=== PATIENT | female | born 1950 | race Caucasian/White ===

== ENCOUNTER → 2018-06-11 12:11 | Outpatient (CLI) | payer MEDICARE, SELFPAY | PROVIDERS: Visit Provider Physician Assistant | DX: R55 Syncope and collapse (principal) | CPT/HCPCS: 93005 ==

== ENCOUNTER 2022-01-24 17:05 | Inpatient (IN) | payer MEDICARE, SELFPAY ==
--- NOTE | 2022-01-24 17:05 | ECG_ITS ---
APPROVED REPORT Exam: Resting ECG HR:78 bpm ECG Measurements Heart Rate 78 AXES ND 156 P 84 QRSd 83 QRS 75 QT 384 T 77 QTc 417 Conclusion SINUS RHYTHM WITH SINUS ARRHYTHMIA MINIMAL ST DEPRESSION [0.025+ mV ST DEPRESSION] BORDERLINE ECG UNCONFIRMED REPORT Electronically signed by : Montrell Gil MD 01/26/2022 08:44:27
[2022-01-24 17:11] VITALS: BP 132/52; PULSE 76; RESP 14; TEMP 36.6; O2SAT 100; BMI 20.9
--- NOTE | 2022-01-24 17:14 | PC.NURSE ---
Mariah Abdul, RN at
--- NOTE | 2022-01-24 17:18 | HMH.EDGENADL ---
ED Disposition Clinical Impression: Enteritis, Ileus, Partial small bowel obstruction Disposition: Admitted as Observation Condition on Discharge: Fair Referrals: Aleksandr Aaron [Primary Care Provider] - - Critical Care Critical Care Time: No Attestation: On , the high probability of a clinically significant, sudden or life threatening deterioration of the following system(s) required my full and direct attention, intervention and personal management. The time I documented below is in addition to time spent performing reported procedures but includes the following listed in this critical care notation. Medical Decision Making - Prem Inquiry Pt receiving controlled substance: Yes Prem was queried for this patient: Yes Risks and benefits of using a controlled substance: were not discussed with pt by me Vital Signs: 01/24/22 17:11 01/24/22 17:30 Temperature 97.9 F Temperature Source Oral Pulse Rate 69 Pulse Rate [Left Radial] 76 Respiratory Rate 14 20 Blood Pressure 127/63 Blood Pressure [Right Arm] 132/52 L Blood Pressure Mean [Right Arm] 78 Blood Pressure Source [Right Arm] Automatic Cuff Blood Pressure Position [Right Arm] Sitting 02 Sat by Pulse Oximetry 100 100 Oxygen Delivery Method Room Air - Lab Data Lab Results 01/24/22 17:14: WBC 11.8 H, RBC 5.07, Hgb 15.1, Hct 44.8, MCV 88.5, MCH 29.9, MCHC 33.8, RDW 13.4, Plt Count 343, MPV 7.8, Neut % (Auto) 86.1 H, Lymph % (Auto) 9.6 L, [place] % (Auto) 3.4, Eos % (Auto) 0.2, Baso % (Auto) 0.7, Neut # (Auto) 10.2 H, Lymph # (Auto) 1.1, [place] # (Auto) 0.4, Eos # (Auto) 0.0, Baso # (Auto) 0.1, Total Counted 100, Neutrophils % (Manual) 87 H, Lymphocytes % (Manual) 9 L, Monocytes % (Manual) 3, Eosinophils % (Manual) 1, Platelet Estimate Normal, RBC Morphology Normal 01/24/22 17:14: Sodium 138, Potassium 3.9, Chloride 100, Carbon Dioxide 28, Anion Gap 13.9, BUN 20 H, Creatinine 0.80, Estimated Creat Clear 47, Estimated GFR 71, Est GFR ( Amer) 86, Glucose 165 H, Calcium 10.1, Total Bilirubin 1.4 H, AST 31, ALT 24, Alkaline Phosphatase 84, Troponin I < 0.01, Total Protein 7.2, Albumin 4.5, Globulin 2.7, Albumin/Globulin Ratio 1.7, Amylase 61 01/24/22 17:14: Lipase 35 01/24/22 17:34: SARS-CoV-2 (PCR) Not detected, Influenza A Untype (PCR) Not detected, Influenza Type B (PCR) Not detected 01/24/22 17:58: Urine Color Dk yellow, Urine Appearance Clear, Urine pH 8.5, Ur Specific [place] 1.010, Urine Protein 1+, Urine Glucose (UA) Negative, Urine Ketones 1+, Urine Blood Negative, Urine Nitrate Negative, Urine Bilirubin 1+ A, Urine Urobilinogen 1.0, Ur Leukocyte Esterase Trace, Urine RBC None, Urine WBC 5-10, Ur Squamous Epith Cells Occasional, Urine Bacteria Trace Result diagrams: 01/24/22 17:14 01/24/22 17:14 Orders (Tests/Meds): ED MEDICATIONS Generic Name Dose Route Start Last Admin Trade Name Freana maria PRN Reason Stop Dose Admin Sodium Chloride 1,000 mls @ 999 mls/hr 01/24/22 17:30 01/24/22 17:25 Sod Chlor 0.9% 1000ml Bag IV 01/24/22 18:30 999 mls/hr .Q1H1M HOLLY Administration Sodium Chloride 10 ml 01/24/22 17:23 Sodium Chloride 0.9% 10ml Flush Syringe IV 02/23/22 17:22 NEEDED PRN Maintain IV Site Discontinued Medications Generic Name Dose Route Start Last Admin Trade Name Freana maria PRN Reason Stop Dose Admin Iopamidol 75 ml 01/24/22 18:16 01/24/22 18:17 Iopamidol-370 (76%);100ml Bottle IV 01/24/22 18:17 75 ml ONCE ONE Administration Morphine Sulfate 4 mg 01/24/22 17:32 01/24/22 17:33 Morphine 4mg/Ml Syringe IV 01/24/22 17:33 4 mg ONCE ONE Administration Ondansetron HCl 4 mg 01/24/22 17:23 01/24/22 17:24 Ondansetron 4mg/2ml Vial IV 01/24/22 17:24 4 mg ONCE ONE Administration Sodium Chloride 10 ml 01/24/22 18:16 01/24/22 18:17 Sodium Chloride 0.9% 10ml Syr (Rad Only) IV 01/24/22 18:17 10 ml ONCE ONE Administration ORDERS Category Date Time Status Troponin I Q3H Lab 01/08
--- NOTE | 2022-01-24 17:21 | PC.NURSE ---
ED MD at
--- NOTE | 2022-01-24 17:22 | XR_ITS ---
PROCEDURE INFORMATION: Exam: XR Chest Exam date and time: 01/24/2022 6:12 PM Age: 71 years old Clinical indication: Pain; Chest pressure; Additional info: Chest pain TECHNIQUE: Imaging protocol: XR of the chest. Views: 1 view. COMPARISON: CT ABDOMEN PELVIS W CON 01/24/2022 6:01 PM FINDINGS: Lungs: Stigmata of old granulomatous disease. Emphysema. Pleural spaces: Unremarkable. No pleural effusion. No pneumothorax. Heart/Mediastinum: Unremarkable. No cardiomegaly. Bones/joints: Status post median sternotomy. IMPRESSION: No acute findings.
--- NOTE | 2022-01-24 17:23 | CT_ITS ---
PROCEDURE INFORMATION: Exam: CT Abdomen And Pelvis With Contrast Exam date and time: 01/24/2022 6:01 PM Age: 71 years old Clinical indication: Vomiting; Abdominal pain; Acute; Additional info: Abdomen pain TECHNIQUE: Imaging protocol: Computed tomography of the abdomen and pelvis with contrast. Radiation optimization: All CT scans at this facility use at least one of these dose optimization techniques: automated exposure control; mA and/or kV adjustment per patient size (includes targeted exams where dose is matched to clinical indication); or iterative reconstruction. Contrast material: ISOVUE; Contrast volume: 75 ml; Contrast route: IV; COMPARISON: No relevant prior studies available. FINDINGS: Lungs: [id number] centrilobular emphysema. Liver: Normal. No mass. Gallbladder and bile ducts: Post cholecystectomy ectasia. Gallbladder is absent. Pancreas: Normal. No ductal dilation. Spleen: Normal. No splenomegaly. Adrenal glands: Normal. No mass. Kidneys and ureters: Normal. No hydronephrosis. Stomach and bowel: Moderate sigmoid diverticulosis without diverticulitis. There are dilated segments of small bowel tapering to normal diameter in the pelvis. Nonspecific bowel wall thickening of portions of the stomach, small bowel, and colon. Appendix: The appendix is not clearly identified. There are no secondary findings of acute appendicitis. Intraperitoneal space: Unremarkable. No free air. No significant fluid collection. Vasculature: Moderate atherosclerotic disease of the arteries. Lymph nodes: Unremarkable. No enlarged lymph nodes. Urinary bladder: Limited evaluation of the urinary bladder due to low urine volume. Reproductive: Status post hysterectomy. Bones/joints: Status post median sternotomy. Soft tissues: There is a healed anterior abdominal wall incision. Other findings: Stigmata of old granulomatous disease. IMPRESSION: 1. Findings are favored to represent enterocolitis with ileus, however, partial small bowel obstruction is also possible. 2. Limited evaluation of the urinary bladder due to low urine volume. Please exclude infection clinically.
[2022-01-24 17:30] VITALS: BP 127/63; PULSE 69; RESP 20; O2SAT 100
[2022-01-24 17:31] LABS: Basophils # 0.1 K/mm3 (0-0.2); Basophils % 0.7 % (0.1-2.0); Eosinophils % 0.2 % (0.1-12.0); Hematocrit 44.8 % (37.0-47.0); Hemoglobin 15.1 g/dL (12.2-16.2); Lymphocytes # 1.1 K/mm3 (0.7-4.5); Lymphocytes % 9.6 % (10-50); Mean Corpuscular HGB Conc 33.8 g/dL (31.8-35.4); Mean Corpuscular Hemoglobin 29.9 pg (27.0-31.2); Mean Corpuscular Volume 88.5 fl (81-99); Mean Platelet Volume 7.8 fl (7.4-10.4); Monocytes # 0.4 K/mm3 (0.1-1.0); Monocytes % 3.4 % (1.7-9.3); Neutrophils # 10.2 K/mm3 (1.8-7.8); Neutrophils % 86.1 % (37.0-80.0); Platelet Count 343 K/mm3 (142-424); Red Blood Count 5.07 M/mm3 (4.20-5.40); Red Cell Distribution Width 13.4 % (11.5-17.5); White Blood Count 11.8 K/mm3 (4.8-10.8)
--- NOTE | 2022-01-24 17:35 | PC.NURSE ---
covid/flu swab obtained and sent to lab
[2022-01-24 17:36] LABS: MANUAL DIFFERENTIAL MANUAL DIFFERENTIAL (MANUAL DIFF)
[2022-01-24 17:40] LABS: Coronavirus 19, PCR Not Detected (NotDetected); Influenza A, PCR Not Detected (NotDetected); Influenza B, PCR Not Detected (NotDetected)
[2022-01-24 17:42] LABS: Chloride 100 mmol/L (98-107); Potassium 3.9 mmoL/L (3.5-5.1); Sodium 138 mmol/L (136-145)
[2022-01-24 17:43] LABS: Lipase 35 U/L (23-300)
[2022-01-24 17:44] LABS: Alanine Aminotransferase 24 U/L (12-78); Alkaline Phosphatase 84 U/L (38-126); Amylase 61 U/L (30-110); Anion Gap 13.9 mEq/L (5-15); Aspartate Amino Transferase 31 U/L (14-36); Bilirubin,Total 1.4 mg/dl (0.2-1.3); Blood Urea Nitrogen 20 mg/dl (7-17); Carbon Dioxide 28 mmol/L (22.0-30.0); Creatinine Clearance Estimated 47 mL/min (50-200); Estimated Glomerular Filt Rate 71 ml/min (>60); GFR (African American) 86 ML/MIN (>60)
[2022-01-24 17:45] LABS: Albumin Level 4.5 g/dl (3.5-5.0); Albumin/Globulin Ratio 1.7 (1.1-1.8); Calcium 10.1 mg/dl (8.4-10.2); Globulin 2.7 g/dL (1.3-3.2); Glucose 165 mg/dl (74-100); Total Protein,Serum 7.2 g/dl (6.3-8.2)
[2022-01-24 17:59] LABS: Troponin I < 0.01 ng/ml (0.00-0.034)
[2022-01-24 18:04] LABS: Microscopic, Urine URINE MICROSCOPIC (MICROSCOPIC)
[2022-01-24 18:05] LABS: Appearance,Urine CLEAR (Clear); Blood, Urine Negative (Negative); Color,Urine DK YELLOW (Yellow); Glucose,Urine (UA) Negative (Negative); Ketones,Urine 1+ (Negative); Leukocyte Esterase,Urine TRACE (Negative); Nitrate,Urine Negative (Negative); PH,Urine 8.5 (5.0-8.5); Protein,Urine 1+ (Negative)
[2022-01-24 18:26] LABS: Bilirubin,Urine 1+ (Negative)
[2022-01-24 18:32] LABS: Eosinophils % 1 % (0-3); Lymphocytes % 9 % (10-50); Monocytes % 3 % (2-9); Neutrophils % 87 % (42-76); Total Cells Counted 100
[2022-01-24 18:33] LABS: Platelet Estimate Normal; RBC Morphology Normal
[2022-01-24 18:36] LABS: Bacteria,Urine Trace /lpf; Squamous Epithelial Cell,Urine Occasional #/hpf (0-5)
--- NOTE | 2022-01-24 19:05 | PC.NURSE ---
Dr. Monson s/w Dr. Ortiz for admission.
--- NOTE | 2022-01-24 19:08 | PC.NURSE ---
House notified for bed assignment
[2022-01-24 19:25] VITALS: BMI 20.9
[2022-01-24 19:49] VITALS: BP 127/63; PULSE 69; RESP 18; TEMP 36.7; O2SAT 99
[2022-01-24 20:00] VITALS: BP 104/48; PULSE 65; RESP 20; TEMP 36.7; O2SAT 95; O2SAT 99
--- NOTE | 2022-01-24 20:07 | PC.NURSE ---
pt arrived to floor via wheelchair at this time.
[2022-01-24 21:30] LABS: Troponin I < 0.01 ng/ml (0.00-0.034)
[2022-01-24 23:38] LABS: Troponin I < 0.01 ng/ml (0.00-0.034)
[2022-01-25 03:49] VITALS: BP 92/49; PULSE 67; RESP 16; TEMP 36.6; O2SAT 97
[2022-01-25 05:10] VITALS: BMI 21.2
--- NOTE | 2022-01-25 05:12 | PC.NURSE ---
Pt a + o x4. Pt has c/o nausea/vomiting t/o night. Emesis is green in color and has foul odor. PRN Zofran given with little effect. MD sales communications manager notified. New orders for 5mg Reglan IV once and 12.5mg Phenergan IV once read back, verified, and carried out. Pt is now resting comfortably in bed. Call light within reach.
--- NOTE | 2022-01-25 07:37 | HMH.PHAVTE ---
[facility] Pharmacy VTE Monitoring - Patient Demographics Admission date: 01/24/22 Report Date: 01/25/22 Time: 07:37 Allergies/Adverse Reactions: Patient Allergies prednisone Allergy (Verified 10/16/18 12:46) Height: 1.65 m Weight: 57.691 kg Patient Problems: Current Active Problems Enteritis (Acute) Ileus (Acute) Partial small bowel obstruction (Acute) - VTE Risk Labs: VTE Related Lab Results Hgb 15.1 g/dL (12.2-16.2) 01/24/22 17:14 Hct 44.8 % (37.0-47.0) 01/24/22 17:14 Plt Count 343 K/mm3 (142-424) 01/24/22 17:14 BUN 20 mg/dl (7-17) H 01/24/22 17:14 Creatinine 0.80 mg/dl (0.52-1.04) 01/24/22 17:14 Estimated Creat Clear 47 mL/min (50-200) 01/24/22 17:14 Was VTE Risk Assessment Performed: Yes VTE Score: 4 VTE Risk Level: Low Risk Clinical Trial Participant: No - Prophylaxis VTE Prophylaxis Ordered?: Yes Types of VTE Prophylaxis: TEDS Knee High
--- NOTE | 2022-01-25 07:38 | HMH.PHAINT ---
home medication list verified using list from [facility] [place]
[2022-01-25 08:00] VITALS: BP 114/60; PULSE 91; RESP 20; TEMP 36.8; O2SAT 97
--- NOTE | 2022-01-25 08:21 | FL_ITS ---
FINAL REPORT CLINICAL HISTORY: . sbo vs ileus total 5hours at 10 mins COMPARISON: Prior CT dated January 24, 2022 FINDINGS: SMALL BOWEL SERIES A preliminary stratigraphy teacher image of the abdomen was obtained. A nasogastric tube is present. There is residual contrast in the bladder. There is an abnormal bowel gas pattern with air-filled distended small bowel loops. Contrast was then injected into the stomach and sequential images of the abdomen and pelvis were obtained. Significantly distended proximal and mid small bowel loops are seen. The 5 hour 10 minute radiograph demonstrates a decompressed terminal ileum and opacification of a portion of the ascending colon. Findings are consistent with a high-grade partial small bowel obstruction. IMPRESSION: High-grade partial small bowel obstruction. Reviewed, Interpreted and Dictated by Kemal Curiel III, MD Transcribed by Bryon Gold Authenticated by Kemal Curiel III, MD on 01/25/2022 04:24:19 PM [facility]
--- NOTE | 2022-01-25 08:25 | HMH.GSCON ---
*Admission Date: 01/24/22 *Reason for consult:: Small bowel obstruction versus ileus *History of present illness: This is a 71-year-old female seen in consultation from Dr. Ortiz for evaluation regarding small bowel obstruction versus ileus. She presented to the emergency department yesterday evening with increasing abdominal pain and nausea/vomiting. She states that she is felt tired and just not right for about a week . Evaluation included a CT scan showing changes consistent with questionable partial small bowel obstruction versus enteritis/ileus. Per radiology evaluation, overall findings were more consistent with enteritis/ileus. Currently, she continues to describe significant/intermittent nausea. She states that her last bowel movement was 2 days ago. She is pretty sure that she has not passed flatus over the past 24 to 48 hours. Note: She does have a complex medical and surgical history to include treatment for gastric cancer, uterine cancer, appendectomy, cholecystectomy, hysterectomy, and aortic valve replacement. Review of Systems - Constitutional Denies chills - *Respiratory Denies cough - *Gastrointestinal Reports abdominal pain, Reports nausea, Reports vomiting, Denies vomiting blood, Denies bright, red blood in stools [place] History Medical History: Reports:: Atrial Fibrillation, Cancer, Coronary Artery Disease, Depression, Gastroesophageal Reflux Disease(GERD), Hypertension Denies:: Diabetes Mellitus Type 1, Diabetes Mellitus Type 2, MRSA *Have you ever received a pneumonia vaccine?: Yes *Have you received a flu vaccine this season?: Yes Other Medical History: Reports: Arthritis, Cataracts Other Surgeries: Yes: Appendectomy, Cholecystectomy, Open Heart Surgery, Other Valve Replacement Amputation: No Fractures: No - *Social History Smoking Status: Former smoker Tobacco Type: cigarettes # Packs/Day (cigarettes): 1 Alcohol Intake: never Substance Use Type: denies use *Occupational Status:: retired Housing: house Household Members: family *Travel in the last 8 weeks: None - Psychiatric History Pschychiatric History:: Reports:: Depression Family Hx:: No significant family history Meds Home Medications Medication Instructions Recorded Confirmed Type Amlodipine Besylate 5 mg PO DAILY 01/24/22 01/24/22 History Furosemide [Lasix 20mg tab] 20 mg PO DAILY PRN 01/24/22 01/24/22 History Omeprazole [Omeprazole 40mg 40 mg PO DAILY PRN 01/24/22 01/24/22 History Capsule] Allergies Allergy/AdvReac Type Severity Reaction Status Date / Time prednisone Allergy Verified 10/16/18 12:46 Exam Vital signs and Labs for Last 24 Hours: Temp Pulse Resp BP Pulse Ox 97.8 F 67 16 92/49 L 97 01/25/22 03:49 01/25/22 03:49 01/25/22 03:49 01/25/22 03:49 01/25/22 03:49 Laboratory Results - last 24 hr 01/24/22 17:14: WBC 11.8 H, RBC 5.07, Hgb 15.1, Hct 44.8, MCV 88.5, MCH 29.9, MCHC 33.8, RDW 13.4, Plt Count 343, MPV 7.8, Neut % (Auto) 86.1 H, Lymph % (Auto) 9.6 L, [place] % (Auto) 3.4, Eos % (Auto) 0.2, Baso % (Auto) 0.7, Neut # (Auto) 10.2 H, Lymph # (Auto) 1.1, [place] # (Auto) 0.4, Eos # (Auto) 0.0, Baso # (Auto) 0.1, Total Counted 100, Neutrophils % (Manual) 87 H, Lymphocytes % (Manual) 9 L, Monocytes % (Manual) 3, Eosinophils % (Manual) 1, Platelet Estimate Normal, RBC Morphology Normal 01/24/22 17:14: Sodium 138, Potassium 3.9, Chloride 100, Carbon Dioxide 28, Anion Gap 13.9, BUN 20 H, Creatinine 0.80, Estimated Creat Clear 47, Estimated GFR 71, Est GFR ( Amer) 86, Glucose 165 H, Calcium 10.1, Total Bilirubin 1.4 H, AST 31, ALT 24, Alkaline Phosphatase 84, Troponin I < 0.01, Total Protein 7.2, Albumin 4.5, Globulin 2.7, Albumin/Globulin Ratio 1.7, Amylase 61 01/24/22 17:14: Lipase 35 01/24/22 17:34: SARS-CoV-2 (PCR) Not detected, Influenza A Untype (PCR) Not detected, Influenza Type B (PCR) Not detected 01/24/22 17:58: Urine Color Dk yellow, Urine Appearance Clear, Urine pH 8.5, Ur Speci
[2022-01-25 08:46] VITALS: BP 131/65; PULSE 61
--- NOTE | 2022-01-25 09:18 | XR_ITS ---
FINAL REPORT CLINICAL HISTORY: NG placement FINDINGS: Two views of the chest were obtained. There are postoperative changes of median sternotomy. There is a new NG tube with the tip below the diaphragm, probably in the body of the stomach. The heart size and pulmonary vascularity are within normal limits. The mediastinum is normal. No acute pulmonary abnormality is identified. There is no pneumothorax. The bony thorax is intact. IMPRESSION: NG tube tip below the diaphragm, probably in the body of the stomach. No active cardiopulmonary disease. Reviewed, Interpreted and Dictated by Kemal Curiel III, MD Transcribed by Betty Del Real Authenticated by Kemal Curiel III, MD on 01/25/2022 11:19:09 AM [facility]
--- NOTE | 2022-01-25 09:19 | PC.NURSE ---
NG placed in L nare @ 57 lydia. Stool appearing emesis is draining. Pt had several episodes of emesis when placing tube Placed order for cxr. Have called RAD for Sm bowel follow through.
--- NOTE | 2022-01-25 11:14 | HMH.HP ---
*Admission Date: 01/24/22 *Chief complaint: Nausea/vomiting *History of present illness: Fatigued for several days. States that she developed chest and abdominal pain yesterday with repetitive vomiting. She says her vomit is like stool but her friend says the vomit she saw was green in color. No bowel movement since yesterday morning. No flatus since yesterday morning. Denies fever. Denies shortness of breath, cough. Has decreased urinary output, no other urinary symptoms. Patient says that she has a history of previous stomach cancer, uterine cancer, cholecystectomy, appendectomy, complete hysterectomy, replaced aortic valve -initially mechanical valve and then a porcine valve since 2017. She says that she was in the hospital at [facility], about 15 or more years ago for cancer. She says they performed some sort of test on her and nicked her bowel. A few days later she had to have emergency surgery and had a bowel resection (Per Dr. Monson). Abdominal/pelvis CT reveals Findings are favored to represent enterocolitis with ileus, however, partial small bowel obstruction is also possible. General surgery consulted [facility] History I have reviewed the patient's past medical history: Yes Medical History: Reports:: Atrial Fibrillation, Cancer, Coronary Artery Disease, Depression, Gastroesophageal Reflux Disease(GERD), Hypertension Denies:: Diabetes Mellitus Type 1, Diabetes Mellitus Type 2, MRSA *Have you ever received a pneumonia vaccine?: Yes *Have you received a flu vaccine this season?: Yes Other Medical History: Reports: Arthritis, Cataracts Other Surgeries: Yes: Appendectomy, Cholecystectomy, Open Heart Surgery, Other Valve Replacement Amputation: No Fractures: No - *Social History Smoking Status: Former smoker Tobacco Type: cigarettes # Packs/Day (cigarettes): 1 Alcohol Intake: never Substance Use Type: denies use *Occupational Status:: retired Housing: house Household Members: family *Travel in the last 8 weeks: None - Psychiatric History Pschychiatric History:: Reports:: Depression Family Hx:: No significant family history Review of Systems - Review of Systems Review of systems:: pertinent systems reviewed and negative unless documented below - Constitutional Denies chills, Denies lack of energy - Eyes Denies blurry vision, Denies double vision - ENT Denies abnormal hearing, Denies nosebleed - *Cardiovascular Denies chest pain, Denies shortness of breath - *Respiratory Denies chest congestion, Denies cough - *Gastrointestinal Reports abdominal pain, Reports nausea, Reports vomiting, Denies vomiting blood - *Musculoskeletal Denies joint pain, Denies muscle weakness - Integumentary/Breasts Denies hair loss, Denies yellowing of the skin - *Neurologic Denies abnormal walking, Denies abnormal speech - Psychiatric Denies abnormal sleep pattern, Denies hearing things others do not hear - Endocrine Denies cold intolerance, Denies increased thirst - Hematologic/Lymphatic Denies easy bleeding, Denies easy bruising - Allergic/Immunologic Denies GI upset with certain foods, Denies wheezing Meds Home Medications Medication Instructions Recorded Confirmed Type Amlodipine Besylate 5 mg PO DAILY 01/24/22 01/24/22 History Furosemide [Lasix 20mg tab] 20 mg PO DAILY PRN 01/24/22 01/24/22 History Omeprazole [Omeprazole 40mg 40 mg PO DAILY PRN 01/24/22 01/24/22 History Capsule] Allergies Allergy/AdvReac Type Severity Reaction Status Date / Time prednisone Allergy Verified 10/16/18 12:46 Exam Vital signs and Labs for Last 24 Hours: Temp Pulse Resp BP Pulse Ox 98.2 F 61 20 131/65 97 01/25/22 08:00 01/25/22 08:46 01/25/22 08:00 01/25/22 08:46 01/25/22 08:00 Laboratory Results - last 24 hr 01/24/22 17:14: WBC 11.8 H, RBC 5.07, Hgb 15.1, Hct 44.8, MCV 88.5, MCH 29.9, MCHC 33.8, RDW 13.4, Plt Count 343, MPV 7.8, Neut % (Auto) 86.1 H, L
--- NOTE | 2022-01-25 14:29 | PC.NURSE ---
Spoke with Dr. Michael's office in [place] to pt having multiple episodes of emesis while NG is clamped and images being taken. Dr. Michael stated to hook pt back up to suction, for relief. Pt states she has already had some relief.
[2022-01-25 16:00] VITALS: BP 114/55; PULSE 70; RESP 20; TEMP 36.6; O2SAT 93
--- NOTE | 2022-01-25 18:21 | PC.NURSE ---
Pt did have a bowel movement this evening and get up to shower. Pt states she feels much better with ng in place. CB in reach. Family has been at bedside this shift. Dr. Michael stated pt could have ice chips, otherwise NPO.
[2022-01-25 20:00] VITALS: BP 116/56; PULSE 70; RESP 18; TEMP 36.6; O2SAT 94
[2022-01-26] VITALS (7 sets, daily range): BP systolic 98–120; BP diastolic 46–64; PULSE 58–82; RESP 16–22; TEMP 36.6–37.2; O2SAT 92–96; BMI 21.2
--- NOTE | 2022-01-26 06:00 | XR_ITS ---
PROCEDURE INFORMATION: Exam: XR Complete Acute Abdomen Series Including Chest Exam date and time: 01/26/2022 5:26 AM Age: 71 years old Clinical indication: Condition or disease; Intestinal condition; Obstruction and other: Enteritis/ileus; Additional info: Sbo vs enteritis/ileus TECHNIQUE: Imaging protocol: XR complete acute abdomen series, including 2 or more views of the abdomen and a single view chest. COMPARISON: CR XR CHEST AP 01/25/2022 9:29 AM FINDINGS: Tubes, catheters and devices: NG tube terminates in the region of the gastric antrum. Lungs: Calcified granuloma in the right lower lobe. Pleural spaces: Normal. No pleural effusions. No pneumothorax. Heart/Mediastinum: Changes of prior aortic valve replacement. Gastrointestinal tract: Nonobstructive bowel gas pattern. Enteric contrast is seen within the colon. Intraperitoneal space: Normal. No free air. Organs: Cholecystectomy clips. Bones/joints: Normal. No acute fracture. Soft tissues: Normal. IMPRESSION: Nonobstructive bowel gas pattern. Enteric contrast is seen within the colon.
--- NOTE | 2022-01-26 06:08 | PC.NURSE ---
No acute changes. Ng tube in place to low suction. Pt has not voiced any complaints to staff. Call light within reach.
--- NOTE | 2022-01-26 07:14 | P.PN_ITS ---
Subjective Narrative: The patient states that she is currently not nauseous; however, she is experiencing increased lower abdominal pain compared to yesterday. She has had a small bowel movement. No flatus. Progress Note: A&P (1) Enteritis Status: Acute (2) Ileus Status: Acute (3) Partial small bowel obstruction Status: Acute Assessment and Plan for All Diagnoses:: Radiographic improvement and clinical improvement in terms of a small bowel movement reported overnight. However, increased lower abdominal pain noted. Would be hesitant to remove nasogastric tube yet as she has had a fairly severe ileus/partial obstruction and would likely develop recurrent nausea without a functional nasogastric tube (at least currently). May actually require larger replacement tube at it has been somewhat dysfunctional overnight (only 12 [place] currently). Exam Vital signs and Labs for Last 24 Hours: Temp Pulse Resp BP Pulse Ox 98.4 F 70 19 120/64 94 L 01/26/22 03:44 01/26/22 03:44 01/26/22 03:44 01/26/22 03:44 01/26/22 03:44 I & O for Last 24 hours: Intake & Output 01/23/22 01/24/22 01/25/22 01/26/22 11:59 11:59 11:59 11:59 Intake Total 1005 / 1005 1058 / 1058 Output Total 1350 / 1350 Balance 1005 / 1005 -292 / -292 Weight 127 lb 3 oz 127 lb 3 oz Radiology Reports for the Last 24 Hours: Flat and upright films from this morning reveal contrast within colon and a somewhat improved bowel gas pattern. - Constitutional no acute distress - *Routine Respiratory Exam Absent: respiratory distress - *Routine Cardiovascular Exam Absent: tachycardia - *Routine Abdominal Exam Present: tenderness
[2022-01-26 07:23] LABS: Basophils % 0.7 % (0.1-2.0); Eosinophils % 0.3 % (0.1-12.0); Hematocrit 34.8 % (37.0-47.0); Hemoglobin 11.8 g/dL (12.2-16.2); Lymphocytes # 0.9 K/mm3 (0.7-4.5); Lymphocytes % 14.1 % (10-50); Mean Corpuscular HGB Conc 33.8 g/dL (31.8-35.4); Mean Corpuscular Hemoglobin 30.4 pg (27.0-31.2); Mean Corpuscular Volume 90.1 fl (81-99); Mean Platelet Volume 8.1 fl (7.4-10.4); Monocytes # 0.4 K/mm3 (0.1-1.0); Monocytes % 5.7 % (1.7-9.3); Neutrophils # 5.3 K/mm3 (1.8-7.8); Neutrophils % 79.2 % (37.0-80.0); Platelet Count 219 K/mm3 (142-424); Red Blood Count 3.86 M/mm3 (4.20-5.40); Red Cell Distribution Width 13.4 % (11.5-17.5); White Blood Count 6.7 K/mm3 (4.8-10.8)
[2022-01-26 07:32] LABS: Blood Urea Nitrogen 20 mg/dl (7-17); Calcium 8.4 mg/dl (8.4-10.2); Carbon Dioxide 30 mmol/L (22.0-30.0); Creatinine Clearance Estimated 48 mL/min (50-200); Estimated Glomerular Filt Rate 83 ml/min (>60); GFR (African American) 100 ML/MIN (>60); Glucose 93 mg/dl (74-100); Potassium 3.9 mmoL/L (3.5-5.1); Sodium 145 mmol/L (136-145)
[2022-01-26 07:40] LABS: Anion Gap 7.9 mEq/L (5-15); Chloride 111 mmol/L (98-107)
--- NOTE | 2022-01-26 09:51 | P.PN_ITS ---
Internal Medicine - PN: Subj *Date: 01/26/22 *Time: 21:42 Interval history: 71-year-old female patient resting in bed quietly she reports less nausea than yesterday with increased lower abdominal pain. NG intact with greenish-brown drainage. Patient requesting to have NG tube removed, Purpose of NG tube and that it will remain today and possibly tomorrow. Patient noted to have arrhythmia, increased fatigue, and murmur we will consult cardiology. Exam Vital signs and Labs for Last 24 Hours: Temp Pulse Resp BP Pulse Ox 98.3 F 82 18 98/57 L 96 01/26/22 08:00 01/26/22 08:00 01/26/22 08:00 01/26/22 08:00 01/26/22 08:00 Laboratory Results - last 24 hr 01/26/22 06:58: WBC 6.7 D, RBC 3.86 L, Hgb 11.8 L, Hct 34.8 L, MCV 90.1, MCH 30.4, MCHC 33.8, RDW 13.4, Plt Count 219 D, MPV 8.1, Neut % (Auto) 79.2, Lymph % (Auto) 14.1, [place] % (Auto) 5.7, Eos % (Auto) 0.3, Baso % (Auto) 0.7, Neut # (Auto) 5.3, Lymph # (Auto) 0.9, [place] # (Auto) 0.4, Eos # (Auto) 0.0, Baso # (Auto) 0.0 01/26/22 06:58: Sodium 145, Potassium 3.9, Chloride 111 H, Carbon Dioxide 30, Anion Gap 7.9, BUN 20 H, Creatinine 0.70, Estimated Creat Clear 48, Estimated GFR 83, Est GFR ( Amer) 100, Glucose 93, Calcium 8.4 I & O for Last 24 hours: Intake & Output 01/23/22 01/24/22 01/25/22 01/26/22 23:59 23:59 23:59 23:59 Intake Total 1005 / 1005 1058 / 1058 Output Total 1350 / 1350 Balance -345 / -345 1058 / 1058 Weight 126 lb 1.988 oz 127 lb 3 oz 127 lb 3 oz - Constitutional no acute distress - *Routine HEENT Exam Head: Present: normocephalic Eye: Present: EOMI ENT: Present: mucous membranes moist - *Routine Neck Exam Present: trachea midline. Absent: tracheal deviation - *Routine Respiratory Exam Present: CTA bilaterally. Absent: accessory muscle use - *Routine Cardiovascular Exam Present: murmur, irregular rhythm - *Routine Abdominal Exam Present: soft, normoactive bowel sounds, tenderness. Absent: firm Comments: NG tube to low wall suction with greenish/brownish drainage - *Routine Extremities Exam Present: clubbing, full ROM, pulses intact. Absent: cyanosis - *Routine Skin Exam Present: intact, dry. Absent: cyanosis, erythema - *Routine Neurological Exam Present: alert, oriented X3. Absent: motor deficit - Routine Psychiatric Exam Present: normal affect, normal thought process. Absent: auditory hallucinations Assessment and Plan (1) Enteritis Status: Acute Category: Medical Code(s): K52.9 - Noninfective gastroenteritis and colitis, unspecified (2) Ileus Status: Acute Category: Medical Code(s): K56.7 - Ileus, unspecified (3) Partial small bowel obstruction Status: Acute Category: Medical Code(s): K56.600 - Partial intestinal obstruction, unspecified as to cause - Assessment and plan all Dx Assessment and Plan for all problems:: Rounded with Dr. Mckoy, all orders per Dr. Mckoy: 1. We will restart Protonix 2. Consult cardiology 3. Surgery following 4. NG remains
--- NOTE | 2022-01-26 11:31 | HMH.CNCARD ---
History of Present Illness Consult date: 01/26/22 Chief complaint: evaluation for pacemaker Additional Medical History:: hx of AVR-last time was 2017 porcine valve by Ignacia LEBRON prior multiple abdominal surgeries cancer History of present illness: From ED MD Fatigued for several days. States that she developed chest and abdominal pain yesterday with repetitive vomiting. She says her vomit is like stool but her friend says the vomit she saw was green in color. No bowel movement since yesterday morning. No flatus since yesterday morning. Denies fever. Denies shortness of breath, cough. Has decreased urinary output, no other urinary symptoms. Patient says that she has a history of previous stomach cancer, uterine cancer, cholecystectomy, appendectomy, complete hysterectomy, replaced aortic valve -initially mechanical valve and then a porcine valve since 2017. She says that she was in the hospital at [facility], about 15 or more years ago for cancer. She says they performed some sort of test on her and nicked her bowel. A few days later she had to have emergency surgery and had a bowel resection. 71 year old white female with past medical hx of HTN, porcine AVR 2017, multiple prior abdominal surgeries, and cancer presented to ED on Sunday with the above complaint. CT abdomen pelvis reported likely enterocolitis with ileus but SBO could not be ruled out. Cardiology was asked to evaluate for possible pacemaker placement. Patient reports for last year has had episodes of weakness and dizziness with low pulse in the 40s at time. Denies cp or soa. PCP Dr. Aaron is in process of referring patient out to be evaluated for pacemaker. EKG in hospital was nsr rate in the 70s-80. patient has had no documented events of bradycardia during hospital stay. [facility] History I have reviewed the patient's past medical history: Yes Medical History: Reports:: Cancer, Depression, Gastroesophageal Reflux Disease(GERD), Hypertension Denies:: Diabetes Mellitus Type 1, Diabetes Mellitus Type 2, MRSA *Have you ever received a pneumonia vaccine?: Yes *Have you received a flu vaccine this season?: Yes Other Medical History: Reports: Arthritis, Cataracts Other Surgeries: Yes: Appendectomy, Cholecystectomy, Open Heart Surgery, Other Valve Replacement Amputation: No Fractures: No - *Social History Smoking Status: Former smoker Tobacco Type: cigarettes # Packs/Day (cigarettes): 1 Alcohol Intake: never Substance Use Type: denies use *Occupational Status:: retired Housing: house Household Members: family *Travel in the last 8 weeks: None - Psychiatric History Pschychiatric History:: Reports:: Depression Family Hx:: No significant family history Meds Home Medications Medication Instructions Recorded Confirmed Type Amlodipine Besylate 5 mg PO DAILY 01/24/22 01/24/22 History Furosemide [Lasix 20mg tab] 20 mg PO DAILY PRN 01/24/22 01/24/22 History Omeprazole [Omeprazole 40mg 40 mg PO DAILY PRN 01/24/22 01/24/22 History Capsule] Allergies Allergy/AdvReac Type Severity Reaction Status Date / Time prednisone Allergy Verified 10/16/18 12:46 Exam Vital signs and Labs for Last 24 Hours: Temp Pulse Resp BP Pulse Ox 98.3 F 82 18 98/57 L 96 01/26/22 08:00 01/26/22 08:00 01/26/22 08:00 01/26/22 08:00 01/26/22 08:00 Laboratory Results - last 24 hr 01/26/22 06:58: WBC 6.7 D, RBC 3.86 L, Hgb 11.8 L, Hct 34.8 L, MCV 90.1, MCH 30.4, MCHC 33.8, RDW 13.4, Plt Count 219 D, MPV 8.1, Neut % (Auto) 79.2, Lymph % (Auto) 14.1, [place] % (Auto) 5.7, Eos % (Auto) 0.3, Baso % (Auto) 0.7, Neut # (Auto) 5.3, Lymph # (Auto) 0.9, [place] # (Auto) 0.4, Eos # (Auto) 0.0, Baso # (Auto) 0.0 01/26/22 06:58: Sodium 145, Potassium 3.9, Chloride 111 H, Carbon Dioxide 30, Anion Gap 7.9, BUN 20 H, Creatinine 0.70, Estimated Creat Clear 48, Estimated GFR 83, Est GFR ( Amer) 100, Glucose 93, Calcium 8.4 I & O for Last 24 hours: Intake &
[2022-01-27] VITALS (10 sets, daily range): BP systolic 102–133; BP diastolic 43–72; PULSE 40–100; RESP 16–21; TEMP 36.4–36.9; O2SAT 90–94; BMI 21.5
--- NOTE | 2022-01-27 02:53 | PC.NURSE ---
DISCONNECTED NG TUBE AND SALINE LOCKED PT AT THIS TIME SO SHE COULD SHOWER.IV COVERED WITH SHOWER GUARD,BED LINENS BEING CHANGED
--- NOTE | 2022-01-27 03:20 | PC.NURSE ---
RECONNECTED PT NG TUBE BACK TO LOW WALL SUCTION,NG TUBE REMAINS IN RIGHT NARE AT 55CM,DRAINING GREEN LIQUID,PT HAS HAD 100ML OUT THUS FAR ON MY SHIFT.BOWEL SOUNDS A LITTLE HYPOACTIVE,PT DENIES ANY PAIN AT THIS TIME.BARREL STRAIGHTENER HAS SHOWN NSR AND SINUS BRADYCARDIA
--- NOTE | 2022-01-27 06:55 | HMH.GSPN ---
Subjective Patient reports: no new complaints, feels better, flatus, bowel movement Progress Note: A&P (1) Enteritis Status: Acute (2) Ileus Status: Acute (3) Partial small bowel obstruction Status: Acute Assessment and Plan for All Diagnoses:: The patient continues to show improvement. She is passing flatus and is currently not nauseous. Gastric output relatively low. NG to drain bag Likely remove nasogastric tube later today Cautiously advance diet once nasogastric tube removed Exam Vital signs and Labs for Last 24 Hours: Temp Pulse Resp BP Pulse Ox 97.9 F 60 17 107/45 L 90 L 01/27/22 03:59 01/27/22 04:00 01/27/22 03:59 01/27/22 03:59 01/27/22 03:59 Laboratory Results - last 24 hr 01/26/22 06:58: WBC 6.7 D, RBC 3.86 L, Hgb 11.8 L, Hct 34.8 L, MCV 90.1, MCH 30.4, MCHC 33.8, RDW 13.4, Plt Count 219 D, MPV 8.1, Neut % (Auto) 79.2, Lymph % (Auto) 14.1, [place] % (Auto) 5.7, Eos % (Auto) 0.3, Baso % (Auto) 0.7, Neut # (Auto) 5.3, Lymph # (Auto) 0.9, [place] # (Auto) 0.4, Eos # (Auto) 0.0, Baso # (Auto) 0.0 01/26/22 06:58: Sodium 145, Potassium 3.9, Chloride 111 H, Carbon Dioxide 30, Anion Gap 7.9, BUN 20 H, Creatinine 0.70, Estimated Creat Clear 48, Estimated GFR 83, Est GFR ( Amer) 100, Glucose 93, Calcium 8.4 I & O for Last 24 hours: Intake & Output 01/24/22 01/25/22 01/26/22 01/27/22 11:59 11:59 11:59 11:59 Intake Total 1005 / 1005 1058 / 1058 1660 / 1660 Output Total 1350 / 1350 Balance 1005 / 1005 -292 / -292 1660 / 1660 Weight 127 lb 3 oz 127 lb 2.955 oz 129 lb 6.4 oz - Constitutional no acute distress - *Routine Respiratory Exam Absent: respiratory distress - *Routine Cardiovascular Exam Absent: tachycardia - *Routine Abdominal Exam Present: soft
[2022-01-27 07:00] LABS: Basophils % 0.4 % (0.1-2.0); Eosinophils % 0.1 % (0.1-12.0); Hematocrit 35.2 % (37.0-47.0); Hemoglobin 11.4 g/dL (12.2-16.2); Lymphocytes % 13.7 % (10-50); Mean Corpuscular HGB Conc 32.3 g/dL (31.8-35.4); Mean Corpuscular Hemoglobin 29.9 pg (27.0-31.2); Mean Corpuscular Volume 92.4 fl (81-99); Mean Platelet Volume 8.4 fl (7.4-10.4); Monocytes # 0.3 K/mm3 (0.1-1.0); Neutrophils % 81.8 % (37.0-80.0); Platelet Count 214 K/mm3 (142-424); Red Blood Count 3.81 M/mm3 (4.20-5.40); Red Cell Distribution Width 13.2 % (11.5-17.5); White Blood Count 7.3 K/mm3 (4.8-10.8)
--- NOTE | 2022-01-27 07:00 | PC.NURSE ---
MAKING AM ROUNDS,COMMUNICATION ORDER ON NG TUBE TO DRAIN BAG,CHECK RESIDUAL EVERY 4 HOURS,IF MORE THAN 100ML OR PT HAS NAUSEA,CONNECT BACK TO WALL LOW SUCTION
[2022-01-27 07:13] LABS: Anion Gap 15.4 mEq/L (5-15); Blood Urea Nitrogen 21 mg/dl (7-17); Calcium 8.1 mg/dl (8.4-10.2); Carbon Dioxide 19 mmol/L (22.0-30.0); Chloride 109 mmol/L (98-107); Creatinine Clearance Estimated 49 mL/min (50-200); Estimated Glomerular Filt Rate 83 ml/min (>60); GFR (African American) 100 ML/MIN (>60); Potassium 3.4 mmoL/L (3.5-5.1); Sodium 140 mmol/L (136-145)
[2022-01-27 07:22] LABS: Glucose 43 mg/dl (74-100)
[2022-01-27 07:49] LABS: POC Glucose,Bedside 194 (70-110)
--- NOTE | 2022-01-27 07:49 | PC.NURSE ---
Lab called with critical glucose of 43. Fingerstick glucose obtained and 41. Patient remained alert and oriented to person, place, time, and situation but felt tired. Dr. Ortiz notified of lab value and order for 1 amp of d50 obtained. Amp of D50 given after being verified by myself and charge nurse yaquelin osorio. Patient's blood sugar rechecked via fingerstick and found to be 194.
--- NOTE | 2022-01-27 08:03 | P.PN_ITS ---
Internal Medicine - PN: Subj *Date: 01/27/22 *Time: 09:38 Interval history: 71-year-old female patient sitting up in bed resting quietly NG to bag with very little brownish drainage. She reports less nausea today she does report fatigue and tired. Explained to her that this will resolve slowly and possibly discharge to home over the weekend. Exam Vital signs and Labs for Last 24 Hours: Temp Pulse Resp BP Pulse Ox 97.6 F 64 16 120/46 L 92 L 01/27/22 07:43 01/27/22 07:43 01/27/22 07:43 01/27/22 07:43 01/27/22 07:43 Laboratory Results - last 24 hr 01/27/22 06:35: WBC 7.3, RBC 3.81 L, Hgb 11.4 L, Hct 35.2 L, MCV 92.4, MCH 29.9, MCHC 32.3, RDW 13.2, Plt Count 214, MPV 8.4, Neut % (Auto) 81.8 H, Lymph % (Auto) 13.7, [place] % (Auto) 4.0, Eos % (Auto) 0.1, Baso % (Auto) 0.4, Neut # (Auto) 6.0, Lymph # (Auto) 1.0, [place] # (Auto) 0.3, Eos # (Auto) 0.0, Baso # (Auto) 0.0 01/27/22 06:35: Sodium 140, Potassium 3.4 L, Chloride 109 H, Carbon Dioxide 19 L , Anion Gap 15.4 H, BUN 21 H, Creatinine 0.70, Estimated Creat Clear 49, Estimated GFR 83, Est GFR ( Amer) 100, Glucose 43 L D, Calcium 8.1 L 01/27/22 07:42: POC Glucose 194 H I & O for Last 24 hours: Intake & Output 01/24/22 01/25/22 01/26/22 01/27/22 23:59 23:59 23:59 23:59 Intake Total 1005 / 1005 1058 / 1058 1660 / 1660 Output Total 1350 / 1350 Balance -345 / -345 1058 / 1058 1660 / 1660 Weight 126 lb 1.988 oz 127 lb 3 oz 127 lb 2.955 oz 129 lb 6.4 oz - Constitutional no acute distress - *Routine HEENT Exam Head: Present: normocephalic Eye: Present: EOMI ENT: Present: mucous membranes moist - *Routine Neck Exam Present: trachea midline ( ). Absent: tracheal deviation - *Routine Respiratory Exam Present: CTA bilaterally. Absent: accessory muscle use - *Routine Cardiovascular Exam Present: RRR, murmur - *Routine Abdominal Exam Present: soft, normoactive bowel sounds. Absent: tenderness, firm - *Routine Extremities Exam Present: edema, full ROM. Absent: cyanosis, clubbing - *Routine Skin Exam Present: intact, dry, normal turgor. Absent: cyanosis, erythema - *Routine Neurological Exam Present: alert, oriented X3. Absent: motor deficit - Routine Psychiatric Exam Present: normal affect, normal thought process. Absent: homicidal ideation Assessment and Plan (1) Enteritis Status: Acute Category: Medical Code(s): K52.9 - Noninfective gastroenteritis and colitis, unspecified (2) Ileus Status: Acute Category: Medical Code(s): K56.7 - Ileus, unspecified (3) Partial small bowel obstruction Status: Acute Category: Medical Code(s): K56.600 - Partial intestinal obstruction, unspecified as to cause - Assessment and plan all Dx Assessment and Plan for all problems:: Rounded with Dr. Ortiz, all orders per Dr. Ortiz: 1. Continue NG to drainage 2. Surgery following 3. N.p.o.
--- NOTE | 2022-01-27 15:19 | PC.NURSE ---
NG tube discontinued at 1500 after residual of 20 ml noted.
--- NOTE | 2022-01-27 18:29 | PC.NURSE ---
NG taken off low wall suction and attached to drain bag at 0800. 5ml of residual noted. at 1200 residual checked again and noted at 20ml. Dr. Michael notified of residual results and stated we could check residual again and if still below 100 then to discontinue nasogastric tube and start patient on clear liquid diet. Patient's residual noted at 22ml so ng tube discontinued. Patient tolerating jello with no complications.
[2022-01-28] VITALS (10 sets, daily range): BP systolic 101–130; BP diastolic 50–90; PULSE 47–72; RESP 17–20; TEMP 36.7–36.9; O2SAT 94–98; BMI 21.5
--- NOTE | 2022-01-28 04:57 | PC.NURSE ---
Addendum entered by Tammy Miguel RN 01/28/22 06:50: Dr. Mckoy ordered diarrhea panel. sample sent to lab. Addendum entered by Tammy Miguel RN 01/28/22 06:24: Patient having water foul smelling diarrhea x5 this morning. Paged curriculum and instruction specialist. Original Note: Patient has been awake most of the shift. Patient did have a few episodes of bradycardia with hr in the 40's. Patient is having bowel movements and passing flatus. No complaints noted at this time.
[2022-01-28 07:55] LABS: Basophils % 0.5 % (0.1-2.0); Eosinophils # 0.1 K/mm3 (0.0-0.4); Eosinophils % 1.1 % (0.1-12.0); Hematocrit 33.8 % (37.0-47.0); Hemoglobin 11.5 g/dL (12.2-16.2); Lymphocytes # 0.9 K/mm3 (0.7-4.5); Lymphocytes % 13.3 % (10-50); Mean Corpuscular HGB Conc 34.2 g/dL (31.8-35.4); Mean Corpuscular Hemoglobin 30.4 pg (27.0-31.2); Mean Platelet Volume 8.9 fl (7.4-10.4); Monocytes # 0.3 K/mm3 (0.1-1.0); Monocytes % 4.9 % (1.7-9.3); Neutrophils # 5.3 K/mm3 (1.8-7.8); Neutrophils % 80.3 % (37.0-80.0); Platelet Count 219 K/mm3 (142-424); Red Cell Distribution Width 13.2 % (11.5-17.5); White Blood Count 6.6 K/mm3 (4.8-10.8)
[2022-01-28 07:58] LABS: Chloride 110 mmol/L (98-107)
[2022-01-28 07:59] LABS: Potassium 3.5 mmoL/L (3.5-5.1); Sodium 137 mmol/L (136-145)
[2022-01-28 08:02] LABS: Anion Gap 7.5 mEq/L (5-15); Blood Urea Nitrogen 8 mg/dl (7-17); Calcium 8.2 mg/dl (8.4-10.2); Carbon Dioxide 23 mmol/L (22.0-30.0); Creatinine Clearance Estimated 49 mL/min (50-200); Estimated Glomerular Filt Rate 122 ml/min (>60); GFR (African American) 148 ML/MIN (>60); Glucose 115 mg/dl (74-100)
--- NOTE | 2022-01-28 08:38 | HMH.GSPN ---
Subjective Patient reports: flatus, bowel movement (Noting some bowel movements at time of flatus. No nausea or vomiting.) Progress Note: A&P (1) Enteritis Status: Acute (2) Ileus Status: Acute (3) Partial small bowel obstruction Status: Acute Assessment and Plan for All Diagnoses:: Ileus/partial obstruction essentially resolved. Nasogastric tube now out. Slowly advance diet Exam Vital signs and Labs for Last 24 Hours: Temp Pulse Resp BP Pulse Ox 98.5 F 52 L 17 101/59 L 94 L 01/28/22 07:26 01/28/22 07:26 01/28/22 07:26 01/28/22 07:26 01/28/22 07:26 Laboratory Results - last 24 hr 01/28/22 07:28: WBC 6.6, RBC 3.80 L, Hgb 11.5 L, Hct 33.8 L, MCV 89.0, MCH 30.4, MCHC 34.2, RDW 13.2, Plt Count 219, MPV 8.9, Neut % (Auto) 80.3 H, Lymph % (Auto) 13.3, [place] % (Auto) 4.9, Eos % (Auto) 1.1, Baso % (Auto) 0.5, Neut # (Auto) 5.3, Lymph # (Auto) 0.9, [place] # (Auto) 0.3, Eos # (Auto) 0.1, Baso # (Auto) 0.0 01/28/22 07:28: Sodium 137, Potassium 3.5, Chloride 110 H, Carbon Dioxide 23, Anion Gap 7.5, BUN 8 D, Creatinine 0.50 L D, Estimated Creat Clear 49, Estimated GFR 122, Est GFR ( Amer) 148 D, Glucose 115 H, Calcium 8.2 L I & O for Last 24 hours: Intake & Output 01/25/22 01/26/22 01/27/22 01/28/22 11:59 11:59 11:59 11:59 Intake Total 1005 / 1005 1058 / 1058 1660 / 1660 1260 / 1260 Output Total 1350 / 1350 Balance 1005 / 1005 -292 / -292 1660 / 1660 1260 / 1260 Weight 127 lb 3 oz 127 lb 2.955 oz 129 lb 6.4 oz 129 lb 6.405 oz - Constitutional no acute distress - *Routine Respiratory Exam Absent: respiratory distress - *Routine Cardiovascular Exam Present: bradycardia - *Routine Abdominal Exam Present: soft
--- NOTE | 2022-01-28 09:18 | HMH.ACPN2 ---
Internal Medicine - PN: Subj *Date: 01/28/22 *Time: 09:18 Interval history: pt feels better and diet being advanced - oob - surg note reviewed Exam Vital signs and Labs for Last 24 Hours: Temp Pulse Resp BP Pulse Ox 98.5 F 52 L 17 101/59 L 94 L 01/28/22 07:26 01/28/22 07:26 01/28/22 07:26 01/28/22 07:26 01/28/22 07:26 Laboratory Results - last 24 hr 01/28/22 07:28: WBC 6.6, RBC 3.80 L, Hgb 11.5 L, Hct 33.8 L, MCV 89.0, MCH 30.4, MCHC 34.2, RDW 13.2, Plt Count 219, MPV 8.9, Neut % (Auto) 80.3 H, Lymph % (Auto) 13.3, [place] % (Auto) 4.9, Eos % (Auto) 1.1, Baso % (Auto) 0.5, Neut # (Auto) 5.3, Lymph # (Auto) 0.9, [place] # (Auto) 0.3, Eos # (Auto) 0.1, Baso # (Auto) 0.0 01/28/22 07:28: Sodium 137, Potassium 3.5, Chloride 110 H, Carbon Dioxide 23, Anion Gap 7.5, BUN 8 D, Creatinine 0.50 L D, Estimated Creat Clear 49, Estimated GFR 122, Est GFR ( Amer) 148 D, Glucose 115 H, Calcium 8.2 L I & O for Last 24 hours: Intake & Output 01/25/22 01/26/22 01/27/22 01/28/22 11:59 11:59 11:59 11:59 Intake Total 1005 / 1005 1058 / 1058 1660 / 1660 1260 / 1260 Output Total 1350 / 1350 Balance 1005 / 1005 -292 / -292 1660 / 1660 1260 / 1260 Weight 127 lb 3 oz 127 lb 2.955 oz 129 lb 6.4 oz 129 lb 6.405 oz - Constitutional no acute distress - *Routine HEENT Exam Head: Present: normocephalic Eye: Present: EOMI, PERRL ENT: Present: mucous membranes dry - *Routine Neck Exam Absent: JVD - *Routine Respiratory Exam Present: CTA bilaterally. Absent: respiratory distress - *Routine Cardiovascular Exam Present: RRR, murmur - *Routine Abdominal Exam Present: soft, tenderness. Absent: guarding - *Routine Extremities Exam Absent: tenderness Comments: superficial phlebitis rt upper ext - *Routine Skin Exam Present: intact - *Routine Neurological Exam Present: alert, CN II-XII intact - Routine Psychiatric Exam Present: normal affect Assessment and Plan (1) Enteritis Status: Acute Category: Medical Code(s): K52.9 - Noninfective gastroenteritis and colitis, unspecified (2) Ileus Status: Acute Category: Medical Code(s): K56.7 - Ileus, unspecified (3) Partial small bowel obstruction Status: Acute Category: Medical Code(s): K56.600 - Partial intestinal obstruction, unspecified as to cause (4) Phlebitis Status: Acute Category: Medical Code(s): I80.9 - Phlebitis and thrombophlebitis of unspecified site
[2022-01-28 09:58] LABS: POC Glucose,Bedside 92 (70-110)
[2022-01-28 09:58] LABS: POC Glucose,Bedside 105 (70-110)
[2022-01-28 09:58] LABS: POC Glucose,Bedside 117 (70-110)
[2022-01-28 11:14] LABS: POC Glucose,Bedside 109 (70-110)
[2022-01-28 16:53] LABS: POC Glucose,Bedside 89 (70-110)
--- NOTE | 2022-01-28 17:16 | PC.NURSE ---
Pt has ambulated down the farfan 3-4 times this shift with no issues. Pt has expressed her want to go home, no new complaints. Pt is independent in her room. Call light in reach and working. VSS. Will continue to monitor pt.
[2022-01-28 20:42] LABS: POC Glucose,Bedside 118 (70-110)
[2022-01-29] VITALS: PULSE 50
--- NOTE | 2022-01-29 03:38 | PC.NURSE ---
No acute episodes this shift. Pt has been up ambulating in room, sitting up to chair. Pt tolerating full liquid diet. No c/o of nausea, vomiting, or abd pain. Pts last BM was 01/28/22. Pt states she is ready to go home. Vitals are WNL at this time. Pt has rested well this shift. NSR/sinus americo on tele this shift. Call light in reach, no complaints or needs voiced at this time.
[2022-01-29 04:00] VITALS: BP 119/64; PULSE 50; PULSE 67; RESP 18; TEMP 36.8; O2SAT 97; BMI 22.4
[2022-01-29 06:02] LABS: POC Glucose,Bedside 102 (70-110)
[2022-01-29 07:17] LABS: Anion Gap 9.3 mEq/L (5-15); Blood Urea Nitrogen 2 mg/dl (7-17); Calcium 8.4 mg/dl (8.4-10.2); Carbon Dioxide 26 mmol/L (22.0-30.0); Chloride 106 mmol/L (98-107); Creatinine Clearance Estimated 51 mL/min (50-200); Estimated Glomerular Filt Rate 122 ml/min (>60); GFR (African American) 148 ML/MIN (>60); Glucose 101 mg/dl (74-100); Potassium 3.3 mmoL/L (3.5-5.1); Sodium 138 mmol/L (136-145)
[2022-01-29 07:29] LABS: Basophils # 0.1 K/mm3 (0-0.2); Basophils % 1.1 % (0.1-2.0); Eosinophils # 0.1 K/mm3 (0.0-0.4); Eosinophils % 1.3 % (0.1-12.0); Hematocrit 36.5 % (37.0-47.0); Hemoglobin 12.4 g/dL (12.2-16.2); Lymphocytes # 1.2 K/mm3 (0.7-4.5); Lymphocytes % 18.5 % (10-50); Mean Corpuscular Hemoglobin 29.8 pg (27.0-31.2); Mean Corpuscular Volume 87.6 fl (81-99); Mean Platelet Volume 8.8 fl (7.4-10.4); Monocytes # 0.4 K/mm3 (0.1-1.0); Monocytes % 5.6 % (1.7-9.3); Neutrophils # 4.8 K/mm3 (1.8-7.8); Neutrophils % 73.4 % (37.0-80.0); Platelet Count 259 K/mm3 (142-424); Red Blood Count 4.17 M/mm3 (4.20-5.40); Red Cell Distribution Width 13.4 % (11.5-17.5); White Blood Count 6.6 K/mm3 (4.8-10.8)
[2022-01-29 08:00] VITALS: BP 110/53; PULSE 66; RESP 16; TEMP 36.8; O2SAT 94
--- NOTE | 2022-01-29 09:38 | P.PN_ITS ---
Subjective Patient reports: feels better, flatus, bowel movement Progress Note: A&P (1) Enteritis Status: Acute (2) Ileus Status: Acute (3) Partial small bowel obstruction Status: Acute Assessment and Plan for All Diagnoses:: She continues to show persistent improvement. Okay from surgical standpoint for discharge home with outpatient follow-up. She will slowly advance her diet at home. She will return immediately if symptoms recur. Exam Vital signs and Labs for Last 24 Hours: Temp Pulse Resp BP Pulse Ox 98.3 F 66 16 110/53 L 94 L 01/29/22 08:00 01/29/22 08:00 01/29/22 08:00 01/29/22 08:00 01/29/22 08:00 Laboratory Results - last 24 hr 01/27/22 12:13: POC Glucose 105 01/27/22 20:22: POC Glucose 117 H 01/28/22 05:53: POC Glucose 92 01/28/22 11:03: POC Glucose 109 01/28/22 16:45: POC Glucose 89 01/28/22 20:16: POC Glucose 118 H 01/29/22 05:47: POC Glucose 102 01/29/22 06:53: WBC 6.6, RBC 4.17 L, Hgb 12.4, Hct 36.5 L, MCV 87.6, MCH 29.8, MCHC 34.0, RDW 13.4, Plt Count 259, MPV 8.8, Neut % (Auto) 73.4, Lymph % (Auto) 18.5, [place] % (Auto) 5.6, Eos % (Auto) 1.3, Baso % (Auto) 1.1, Neut # (Auto) 4.8, Lymph # (Auto) 1.2, [place] # (Auto) 0.4, Eos # (Auto) 0.1, Baso # (Auto) 0.1 01/29/22 06:53: Sodium 138, Potassium 3.3 L, Chloride 106, Carbon Dioxide 26, Anion Gap 9.3, BUN 2 L D, Creatinine 0.50 L, Estimated Creat Clear 51, Estimated GFR 122, Est GFR ( Amer) 148, Glucose 101 H, Calcium 8.4 I & O for Last 24 hours: Intake & Output 01/26/22 01/27/22 01/28/22 01/29/22 11:59 11:59 11:59 11:59 Intake Total 1058 / 1058 1660 / 1660 1260 / 1260 1302 / 1302 Output Total 1350 / 1350 Balance -292 / -292 1660 / 1660 1260 / 1260 1302 / 1302 Weight 127 lb 2.955 oz 129 lb 6.4 oz 129 lb 6.405 oz 135 lb - Constitutional no acute distress - *Routine Respiratory Exam Absent: respiratory distress - *Routine Cardiovascular Exam Present: RRR - *Routine Abdominal Exam Present: soft
--- NOTE | 2022-01-29 10:50 | HMH.DCSUM ---
General - General Admission date:: 01/24/22 Discharge date: 01/29/22 HPI HPI: Fatigued for several days. States that she developed chest and abdominal pain yesterday with repetitive vomiting. She says her vomit is like stool but her friend says the vomit she saw was green in color. No bowel movement since yesterday morning. No flatus since yesterday morning. Denies fever. Denies shortness of breath, cough. Has decreased urinary output, no other urinary symptoms. Patient says that she has a history of previous stomach cancer, uterine cancer, cholecystectomy, appendectomy, complete hysterectomy, replaced aortic valve -initially mechanical valve and then a porcine valve since 2017. She says that she was in the hospital at [facility], about 15 or more years ago for cancer. She says they performed some sort of test on her and nicked her bowel. A few days later she had to have emergency surgery and had a bowel resection (Per Dr. Monson). Abdominal/pelvis CT reveals Findings are favored to represent enterocolitis with ileus, however, partial small bowel obstruction is also possible. General surgery consulted Hospital Course Hospital Course: The patient was admitted to our service with a diagnosis of ileus, small bowel obstruction, stable enterocolitis. Patient has a complex surgical history including resection of gastric cancer, history of uterine cancer, status post hysterectomy, that is post appendectomy, status post gallbladder resection, and placement of an aortic porcine valve. Patient made slow steady progression responded well to NG decompression. Abdominal studies or the end of her stay here and straight enteric contrast into the colon. He tolerated the PO intake after discontinuation of the NG tube. Patient was also seen in consultation per cardiology. An echo was done, pending at the time of dictation. Patient was noted to have episodes of bradycardia, the lowest into the 40s. Her baseline was normal sinus rhythm in the 50s. Patient's dump truck operator had alluded to the possible need for a pacer in the future. We will send her out on panel monitor, which is already been ordered. Will ask her to follow-up cardiology office. Objective Vital signs: Temp Pulse Resp BP Pulse Ox 98.3 F 66 16 110/53 L 94 L 01/29/22 08:00 01/29/22 08:00 01/29/22 08:00 01/29/22 08:00 01/29/22 08:00 no acute distress - *Routine HEENT Exam Head: Present: normocephalic Eye: Present: EOMI, PERRL ENT: Present: mucous membranes moist - *Routine Neck Exam Present: supple - *Routine Respiratory Exam Present: CTA bilaterally - *Routine Cardiovascular Exam Present: RRR, murmur - *Routine Abdominal Exam Present: soft, normoactive bowel sounds. Absent: tenderness - *Routine Extremities Exam Absent: cyanosis, clubbing, edema - *Routine Skin Exam Present: warm. Absent: rash Results Labs on day of discharge: Labs from last 24 hours 01/29/22 01/29/22 01/29/22 06:53 06:53 05:47 WBC 6.6 RBC 4.17 L Hgb 12.4 Hct 36.5 L MCV 87.6 MCH 29.8 MCHC 34.0 RDW 13.4 Plt Count 259 MPV 8.8 Neut % (Auto) 73.4 Lymph % (Auto) 18.5 [place] % (Auto) 5.6 Eos % (Auto) 1.3 Baso % (Auto) 1.1 Neut # (Auto) 4.8 Lymph # (Auto) 1.2 [place] # (Auto) 0.4 Eos # (Auto) 0.1 Baso # (Auto) 0.1 Sodium 138 Potassium 3.3 L Chloride 106 Carbon Dioxide 26 Anion Gap 9.3 BUN 2 L D Creatinine 0.50 L Estimated Creat Clear 51 Estimated GFR 122 Est GFR ( Amer) 148 Glucose 101 H POC Glucose 102 Calcium 8.4 01/28/22 01/28/22 01/28/22 20:16 16:45 11:03 WBC RBC Hgb Hct MCV MCH MCHC RDW Plt Count MPV Neut % (Auto) Lymph % (Auto) [place] % (Auto) Eos % (Auto) Baso % (Auto) Neut # (Auto) Lymph # (Auto) [place] # (Auto) Eos # (Auto) Baso # (Au
[2022-01-29 11:31] LABS: POC Glucose,Bedside 94 (70-110)
--- NOTE | 2022-01-30 11:03 | CARE MANAGER ---
Called and spoke with Saranya regarding post discharge status. She states that she is feeling better today. Her daughter called and scheduled her appointments with Dr. Michael and Dr. Richards in 2 weeks. She also stated that her appt with Dr. Mckoy has been scheduled for 02/07. She commented that she was very happy with her stay here, that everyone on the floor was very good to her. She has no issues to report at this time.
--- NOTE | 2022-01-30 15:00 | CARE MANAGER ---
Patient was to have a 2 week event monitor, this caseworker protective services spoke with patient and she will be at [facility] in the AM to get holter monitor applied.
== END 2022-01-29 12:33 | disposition home or self-care (01) | DRG 390 ==
LOC: ER 19:08 → 2ND 19:30
PROVIDERS: Family Medicine; Nurse Practitioner Family; Surgery; Admitting Provider Emergency Medicine; Emergency Provider Emergency Medicine; PCP Family Medicine; Visit Provider Emergency Medicine
DX: K56.7 Ileus, unspecified (principal); K56.600 Partial intestinal obstruction, unspecified as to cause; I10 Essential (primary) hypertension; F32.A Depression, unspecified; K21.9 Gastro-esophageal reflux disease without esophagitis; M19.90 Unspecified osteoarthritis, unspecified site; Z87.891 Personal history of nicotine dependence; Z95.3 Presence of xenogenic heart valve
CPT/HCPCS: 36415; 71045; 74021; 74177; 74250; 80048; 80053; 81001; 82150; 82962; 83690; 84484; 85007; 85025; 87507; 93005; 93306; 96375; 99285; C9803; J2405; Q9967; U0003; U0005

== ENCOUNTER → 2022-01-31 12:41 | Outpatient (CLI) | payer MEDICARE, SELFPAY | PROVIDERS: PCP Emergency Medicine; Visit Provider Emergency Medicine | DX: R07.9 Chest pain, unspecified (principal); R00.1 Bradycardia, unspecified | CPT/HCPCS: 93270 ==

== ENCOUNTER → 2022-02-08 10:19 | Outpatient (CLI) | payer MEDICARE, SELFPAY ==
[2022-02-08 12:32] LABS: Chloride 102 mmol/L (98-107)
[2022-02-08 12:33] LABS: Potassium 5.1 mmoL/L (3.5-5.1); Sodium 138 mmol/L (136-145)
[2022-02-08 12:35] LABS: Alanine Aminotransferase 18 U/L (12-78); Aspartate Amino Transferase 26 U/L (14-36); Blood Urea Nitrogen 15 mg/dl (7-17); Estimated Glomerular Filt Rate 99 ml/min (>60); GFR (African American) 120 ML/MIN (>60)
[2022-02-08 12:36] LABS: Albumin Level 4.1 g/dl (3.5-5.0); Albumin/Globulin Ratio 1.8 (1.1-1.8); Alkaline Phosphatase 70 U/L (38-126); Anion Gap 8.1 mEq/L (5-15); Bilirubin,Total 0.4 mg/dl (0.2-1.3); Calcium 9.4 mg/dl (8.4-10.2); Carbon Dioxide 33 mmol/L (22.0-30.0); Globulin 2.3 g/dL (1.3-3.2); Glucose 90 mg/dl (74-100); Total Protein,Serum 6.4 g/dl (6.3-8.2)
[2022-02-08 13:07] LABS: Thyroid Stimulating Hormone 2.81 uIU/mL (0.465-4.68)
== END ==
PROVIDERS: PCP Family Medicine; Visit Provider Family Medicine
DX: K56.609 Unspecified intestinal obstruction, unspecified as to partial versus complete obstruction (principal); K56.7 Ileus, unspecified
CPT/HCPCS: 36415; 80053; 84443

== ENCOUNTER → 2022-02-17 08:18 | Outpatient (CLI) | payer MEDICARE, SELFPAY ==
--- NOTE | 2022-02-17 08:18 | FL_ITS ---
FINAL REPORT CLINICAL HISTORY: C/o food getting stuck w heart burn x 2-3 mos. FINDINGS: ESOPHAGRAM HISTORY: dysphagiaa. PROCEDURE: The patient ingested barium. Effervescent crystals were also administered. Spot and overhead films were obtained. FINDINGS: The esophagus is normal. There is no hiatal hernia. There is no gastroesophageal reflux. Peristalsis is normal. IMPRESSION: Normal esophagram. fluoroscopy time: 43 seconds Films reviewed , interpreted and dictated by Dr. Curiel Transcribed by Giovani Barnard PA-C. Reviewed, Interpreted and Dictated by Kemal Curiel III, MD Transcribed by THEODORE Austin Authenticated and [facility]
== END ==
PROVIDERS: PCP Family Medicine; Visit Provider Surgery
DX: R13.19 Other dysphagia (principal)
CPT/HCPCS: 74220

== ENCOUNTER 2022-04-26 15:31 | Emergency (ER) | payer MEDICARE, SELFPAY ==
--- NOTE | 2022-04-26 15:48 | XR_ITS ---
FINAL REPORT CLINICAL HISTORY: cough former smoker COMPARISON: 01/26/2022 FINDINGS: TWO-VIEW CHEST The heart size is normal. The patient is status post median sternotomy. There is mild scarring. The lungs are otherwise clear. There is no pneumothorax. IMPRESSION: No acute cardiopulmonary process. Reviewed, Interpreted and Dictated by Kemal Curiel III, MD Transcribed by Izabela Marks Authenticated and [facility]
[2022-04-26 15:51] VITALS: BP 132/85; PULSE 69; RESP 18; TEMP 36.9; O2SAT 96; BMI 20.1
--- NOTE | 2022-04-26 15:59 | HMH.EDUTC ---
[facility] Disposition Clinical Impression: Strep throat, Viral syndrome Disposition: Home, Self-Care Condition on Discharge: Good Instructions: Preventing the Spread of Coronavirus Discharge Instructions, DI for COVID-19 (Suspected or Confirmed ) Additional Instructions: Drink plenty of fluids. Take tylenol for pain or fever. Take the medications as directed. Follow up with your regular doctor. GO TO THE ER FOR ANY WORSENING SYMPTOMS Quarantine until you know the results of your covid-19 test. Notify your school or workplace of your results and follow their instructions regarding return to work/school. Prescriptions: Ondansetron [Zofran 4mg ODT] 4 mg PO Q8HP PRN #20 tab PRN Reason: Nausea Transmission Status: Pending to [facility] Benzonatate [Benzonatate 100mg cap] 100 mg PO TIDP PRN #30 cap PRN Reason: Cough Transmission Status: Pending to [facility] Referrals: Dilshad Mckoy MD [Primary Care Provider] - Time of Disposition: 16:18 Medical Decision Making - Medical Records Medical records reviewed: No: I reviewed the patient's medical records. - Prem Inquiry Pt receiving controlled substance: No Vital Signs: 04/26/22 15:51 Temperature 98.5 F Temperature Source Oral Pulse Rate [Left] 69 Respiratory Rate 18 Blood Pressure [Right Arm] 132/85 Blood Pressure Mean [Right Arm] 100 02 Sat by Pulse Oximetry 96 Orders (Tests/Meds): ORDERS Category Date Time Status Chest XR 2 view (NOT portable) [XR chest 2V] Stat Exams 04/26/22 15:48 Taken Covid-19 Nasal PCR ([facility]) Routine Lab 04/26/22 16:02 Ordered [facility] HPI - General Stated complaint: Home test + ,covid test,sore throat,body aches Time Seen by Provider: 04/26/22 15:59 Mode of Arrival: Ambulatory Source of Information: Patient Limitations: No Limitations Description of Symptoms (Recalled from Triage Doc. by RN): patient comes in for covid test. patient tested positive at home today. patient made an attempt to see pcp today, she was told they were unable to see her. she then went to see a pcp in [place]. she was seen there today, diagnosed with strep and given abx. patient is here now for covid test. HEENT Symptoms (Recalled from RN notes): No Resp Symptoms (Recalled from RN notes): Yes Skin Symptoms (Recalled from RN notes): No MS Symptoms (Recalled from RN notes): No Functional Status (Recalled from RN notes): n/a - History of Present Illness Provider Complaint: She started feeling bad 2 days ago. She went to her pcp today and tested + for strep throat. She is being treated for that now, but once she went home she took a home covid test just to be safe and the result was positive. She is here to have a pcr covid-19 test. - Related Data Previous Rx's Medication Instructions Recorded furosemide 20 mg tablet 20 mg PO DAILY PRN #90 tab 02/07/22 omeprazole 40 mg capsule,delayed 40 mg PO DAILY PRN #90 cap 02/07/22 release amlodipine 10 mg tablet 10 mg PO DAILY #30 tab 03/01/22 bisoprolol fumarate 5 mg tablet 2.5 mg PO DAILY #30 tab 03/01/22 Benzonatate [Benzonatate 100mg 100 mg PO TIDP PRN #30 cap 04/26/22 cap] Ondansetron [Zofran 4mg ODT] 4 mg PO Q8HP PRN #20 tab 04/26/22 Allergies Allergy/AdvReac Type Severity Reaction Status Date / Time prednisone Allergy Verified 04/26/22 15:54 - Worker's Comp Is this a Worker's Comp case?: No [facility] History - Hepatitis A Screen Attestation statement:: This patient has been screened for Hepatitis A risk factors. I have reviewed the patient's past medical history: Yes Medical History: Reports:: Atrial Fibrillation, Cancer, Coronary Artery Disease, Depression, Gastroesophageal Reflux Disease(GERD), Hypertension Denies:: Diabetes Mellitus Type 1, Diabetes Mellitus Type 2, MRSA Other Medical History: Reports: Arthritis, Cataracts, Other Other Surgeries: Yes: Appendectomy, Cholecystectomy, Open Heart Surgery, Other Valve Replaceme
[2022-04-26 16:22] VITALS: BP 132/85; PULSE 69; RESP 18; TEMP 36.9
== END 2022-04-26 16:23 | disposition home or self-care (01) ==
PROVIDERS: Emergency Provider Nurse Practitioner Family; PCP Family Medicine
DX: U07.1 COVID-19 (principal); J02.0 Streptococcal pharyngitis; B95.0 Streptococcus, group A, as the cause of diseases classified elsewhere; R55 Syncope and collapse; M79.10 Myalgia, unspecified site; I10 Essential (primary) hypertension; I25.10 Atherosclerotic heart disease of native coronary artery without angina pectoris; I48.91 Unspecified atrial fibrillation; K21.9 Gastro-esophageal reflux disease without esophagitis; M19.90 Unspecified osteoarthritis, unspecified site; R53.82 Chronic fatigue, unspecified; Z88.8 Allergy status to other drugs, medicaments and biological substances; Z87.891 Personal history of nicotine dependence
CPT/HCPCS: 71046; 99213; C9803; G0463; U0003; U0005

== ENCOUNTER → 2022-06-13 13:21 | Outpatient (CLI) | payer MEDICARE, SELFPAY | PROVIDERS: PCP Family Medicine; Visit Provider Family Medicine | DX: R10.9 Unspecified abdominal pain (principal) | CPT/HCPCS: 87086 ==

== ENCOUNTER → 2022-10-12 12:00 | Outpatient (CLI) | payer MEDICARE, SELFPAY ==
[2022-10-12 12:36] LABS: D-Dimer 0.67 ug/mL (0.0-0.5)
[2022-10-12 14:04] LABS: Troponin I < 0.01 ng/ml (0.00-0.034)
[2022-10-12 14:10] LABS: Chloride 109 mmol/L (98-107); Potassium 4.2 mmoL/L (3.5-5.1); Sodium 142 mmol/L (136-145)
[2022-10-12 14:13] LABS: Anion Gap 11.2 mEq/L (5-15); Blood Urea Nitrogen 14 mg/dl (7-17); Carbon Dioxide 26 mmol/L (22.0-30.0); Estimated Glomerular Filt Rate 99 ml/min (>60); GFR (African American) 119 ML/MIN (>60)
[2022-10-12 14:14] LABS: Calcium 9.1 mg/dl (8.4-10.2); Glucose 98 mg/dl (74-100)
--- NOTE | 2022-10-12 14:33 | CT_ITS ---
FINAL REPORT CLINICAL HISTORY: chest pain, soa COMPARISON: 10/09/2022 FINDINGS: Thin section axial CT images of the chest were obtained with contrast. 3D reformatted images were also obtained. This study was performed with techniques to keep radiation doses as low as reasonably achievable (ALARA). Individualized dose reduction techniques using automated exposure control or adjustment of mA and/or kV according to the patient''s size were employed. Patient is status post median sternotomy. There is no evidence of pulmonary embolism. There is ectasia of the abdominal aorta measuring 3.7 cm, stable. There is no evidence of dissection. There is no evidence of mediastinal or hilar mass or adenopathy. There is no evidence of pulmonary mass or nodule. No localized inflammatory process is seen within the lungs. There is severe emphysema. Moderate scarring is identified, greatest in the apices. The patient is status post cholecystectomy. IMPRESSION: No evidence of pulmonary embolism. Stable abdominal aortic aneurysm. Reviewed, Interpreted and Dictated by Kemal Curiel III, MD Transcribed by Izabela Marks Authenticated and [facility]
== END ==
PROVIDERS: Nurse Practitioner; PCP Family Medicine; Visit Provider Family Medicine
DX: R07.9 Chest pain, unspecified (principal); R79.89 Other specified abnormal findings of blood chemistry
CPT/HCPCS: 36415; 71275; 80048; 84484; 85378; Q9967

== ENCOUNTER → 2022-10-16 11:37 | Outpatient (CLI) | payer MEDICARE, SELFPAY ==
--- NOTE | 2022-10-16 11:37 | NM_ITS ---
APPROVED REPORT Exam: Nuclear Stress Test Indication: Chest pain, SOB, Fatigue, Family history, CAD Patient Location: Outpatient Stress Tech: Destiny Sauceda NM Tech:Key Henderson, ARRT, RT (R)(N) Ht: 5 ft 6 in Wt: 120 lbs Bra Size: 38B HR: 60 bpm BP: 140/61 mmHg BSA: 1.61 m2 TID: 1.16 BMI: 19.3 History: Chest pain, SOB, Fatigue, Family history, CAD Procedure: Patient received 0.4 mg of intravenous Lexiscan, resting heart rate 60 bpm, resting blood pressure 140/61 mmHg, with Lexiscan maximum heart rate achieved was 83 bpm which is Less than 85 % of the maximum predicted heart rate and blood pressure was 157/63 mmHg. With Lexiscan, patient denied any complaint of chest pain. Electrocardiogram Resting electrocardiogram shows sinus rhythm, with Lexiscan there is less than 1.[address] segment depression noted from the baseline EKG. The EKG portion of the Lexiscan is nondiagnostic. Cardiac Stress and Resting SPECT Images: Cardiac Stress and Resting SPECT images were obtained using technetium 99m Myoview 31.8 mCi stress and 10.08 mCi at rest. Gated SPECT analysis of segmental wall motion and calculation of the ejection fraction also done. Prone images were also obtained. Cardiac stress and rest SPECT may show uniform myocardial activity without segmental perfusion abnormality, completed ejection fraction is 68% with no regional wall motion abnormality, right ventricle is normal size and contractility. Conclusion: 1. The EKG portion of the Lexiscan is nondiagnostic. 2. No scintigraphic evidence of reversible ischemia seen, compared to ejection fraction is 68% with no regional wall motion abnormality, right ventricle is normal size and contractility. 3. Normal Lexiscan Myoview study. Electronically signed by : Hunter Rueda MD 10/16/2022 16:03:57
--- NOTE | 2022-10-16 13:37 | HMH.ITSHM ---
Current Home Medications as stated by this patient Saranya Chowdhury or wireless sales representative. []OMEPRAZOLE FUROSEMIDE
--- NOTE | 2022-10-16 13:56 | CA_ITS ---
APPROVED REPORT EXAM: Comprehensive 2D, Doppler, and color-flow Echocardiogram Electrician Supervisor Substation: Gem Cortez RT(R) Ht: 5 ft 5 in Wt: 120lbs BSA: 1.59 BP: 160/70 mmHg Indications: Bioprosthetic AV (2017), CP, CAD, stable AAA 2D Dimensions LVOT 1.90 cm (M/F) 1.5-2.5 M-Mode Dimensions RVDd 2.20 cm (0.9-2.6) LA Diam 2.86 cm (1.9-4.0) LVDd 4.29 cm (3.5-5.7) Ao Diam 1.92 cm (2.0-3.7) LVDs 3.33 cm (3.5-5.7) IVSd 0.81 cm (0.6-1.1) PWd 0.72 cm (0.6-1.1) EF (Teich) 45.40% FS 22.40% EDV (Teich) 82.60 mL ESV (Teich) 45.10 mL LV Diastology E Decel Time 233.00 (160-240 msec) E/A Ratio 1.1 MED E' 7.80 (< 7 cm/sec) E'/MED E' Ratio 10.76 (>14) LAT E' 9.80 (<10 cm/sec) E/LAT E' Ratio 8.56 (>14) Aortic Valve LVOT Max 129.00 (70-110 cm/s) LVOT VTI 26.47 cm AoV Peak Lazaro. 197.00 (50-130 cm/s) AO Peak GR. 15.60 mmHg AO Mean GR. 7.70 (<5 mmHg) AO VTI 39.06 (18-25 cm) JENNY (VTI) 1.92 (2.5-4.5 cm2) Mitral Valve MV E Max Lazaro. 84.00 (40-130 cm/s) MV A Velocity 78.00 (40-130 cm/s) E/A Ratio 1.07 MV Decel. Time 233.00 (160-240 ms) MV PHT 68.00 ms Tricuspid Valve TR P. Velocity 227.00 cm/s RAP Estimate 10.00 mmHg RVSP 30.50 mmHg Left Ventricle Left atrium is mildly enlarged, left ventricular normal size, estimated ejection fraction 55% with no regional wall motion abnormality, diastolic parameters are within normal range. Right Ventricle Right atrium and right ventricular normal size and contractility. Aortic Valve There is bioprosthetic valve noted in the aortic position, the valve is well-seated. There is no significant aortic outflow obstruction or aortic insufficiency. Mitral Valve Mitral valve is grossly normal, there is trace mitral regurgitation. Tricuspid Valve Tricuspid grossly normal, there is trace tricuspid regurgitation, tricuspid regurgitation jet plus is inadequate for calculation of the right ventricular systolic pressure. Pulmonic Valve Pulmonic valve is poorly visualized. Great Vessels Aortic root is normal size. Inferior vena cava is normal size with normal inspiratory collapse. Pericardium No significant pericardial effusion noted. Conclusion 1. Mildly in the left atrium, normal left ventricular size, estimate ejection fraction 55% with no regional wall motion abnormality, diastolic parameters are within normal range. 2. Normal functioning bioprosthetic valve in the aortic position without aortic insufficiency or aortic stenosis. 3. Trace mitral and tricuspid regurgitation. 4. No significant pericardial effusion noted. 5. Inferior vena cava is normal size with normal inspiratory collapse. Electronically signed by : Hunter Rueda MD 10/16/2022 16:13:04
--- NOTE | 2022-10-16 15:05 | CA_ITS ---
APPROVED REPORT Exam: Pharmacologic Technologist: Destiny Sauceda Ht: 5 ft 5 in Wt: 124 lbs BSA: 1.61 m2 HR: 57 bpm BP: 140/61 mmHg Indications: Chest pain Medical History Medications: Omeprazole,,,,, Furosemide,,,,, Stress Test Details Test: LEXISCAN HR Resting HR: 60 bpm Max Heart Rate (APMHR): 149.927575 bpm Max HR Achieved: 83 bpm Target HR (85% APMHR): 126.251798 bpm % of APMHR: 55.70 Recovery HR: 73 bpm BP Resting BP: 140.0/61.0 mmHg Max BP: 157.0/63.0 mmHg Recovery BP: 141.0/70.0 mmHg ECG Resting ECG: Sinus rhythm with run of PACs/SVT Clinical Exercise duration: 04:00 min Highest Stage Achieved: Stress ECG Conclusion Symptoms: Sharp chest pain with Lexiscan and shortness of air. Arrhythmias/Ectopy: None ST-T Changes: < 1.[address] segment depression. Test Summary REST . . . . . . . Resting REST 08:11 . . 60 . 140/ 61 . . Stage 1 . . . . . . . Myoview Injected Stage 1 01:00 . . 80 . . . . Stage 2 01:00 . . 82 . 137/ 68 . . Stage 3 01:00 . . 76 . 157/ 63 . . Stage 4 01:00 . . 72 . 139/ 67 . Stop exercise at 04:00 RECOVERY 01:00 . . 73 . . . . RECOVERY 02:00 . . 73 . 144/ 66 . . RECOVERY 02:44 . . 76 . 141/ 70 . . Electronically signed by : Hunter Rueda MD 10/16/2022 15:52:14
== END ==
LOC: RAD 11:37
PROVIDERS: PCP Family Medicine; Visit Provider Nurse Practitioner
DX: R07.9 Chest pain, unspecified (principal); R79.89 Other specified abnormal findings of blood chemistry
CPT/HCPCS: 78452; 93017; 93306; A9502; J2785

== ENCOUNTER 2022-10-21 12:00 | Emergency (ER) | payer MEDICARE, SELFPAY ==
[2022-10-21 12:50] VITALS: BP 151/72; PULSE 68; RESP 20; TEMP 36.5; O2SAT 97; BMI 20.1
--- NOTE | 2022-10-21 13:12 | EXP.UTC ---
Discharge Plan Disposition Patient Disposition: Home, Self-Care Condition: Good Prescriptions Prescriptions: New azithromycin [Zithromax] 250 mg tablet 250 mg PO UD DOSE PK Qty: 6 0RF Rx Instructions: Take two (2) tablets today, then one (1) tablet days #2 thru #5 benzonatate [benzonatate] 100 mg capsule 100 mg PO TIDP PRN (Reason: Cough) Qty: 30 0RF No Action furosemide 20 mg tablet See Rx Instructions .ROUTE .COMPLEX Qty: 90 0RF Dose Instruction: TAKE 1 TABLET BY MOUTH ONCE DAILY NEEDED FOR SWELLING Rx Instructions: TAKE 1 TABLET BY MOUTH ONCE DAILY NEEDED FOR SWELLING omeprazole 40 mg capsule,delayed release(DR/EC) See Rx Instructions .ROUTE .COMPLEX Qty: 90 0RF Dose Instruction: TAKE 1 CAPSULE BY MOUTH ONCE DAILY NEEDED FOR HEART BURN Rx Instructions: TAKE 1 CAPSULE BY MOUTH ONCE DAILY NEEDED FOR HEART BURN Referrals Follow up/Referrals: Dilshad Mckoy MD [Primary Care Provider] - See instructions Activity Restrictions/Add. Instructions Additional Instructions/Restrictions: Drink plenty of fluids. Take tylenol or ibuprofen for pain or fever. Take the medications as directed. Follow up with your regular doctor. GO TO THE ER FOR ANY WORSENING SYMPTOMS Clinical Impressions Clinical Impression: Sinusitis Instructions Patient Instructions: Sinusitis, DI for Sinusitis Discharge ED Provider: Lan Legih [facility] General Stated complaint: head congestion Mode of Arrival: Ambulatory Source of Information: Patient Limitations: No Limitations Time Seen by Provider: 10/21/22 13:12 Description of Symptoms (Recalled from Triage Doc. by RN): PATIENT C/O COUGH AND SINUS PRESSURE FOR OVER A WEEK HEENT Symptoms (Recalled from RN notes): Yes Resp Symptoms (Recalled from RN notes): Yes Skin Symptoms (Recalled from RN notes): No MS Symptoms (Recalled from RN notes): No Functional Status (Recalled from RN notes): WNL History of Present Illness Provider Complaint: She has had sinus congestion, runny nose, and a sore throat for the past 5 days. Related Data Previous Rx's Medication Instructions Recorded furosemide 20 mg tablet See Rx Instructions .Route 05/04/22 .COMPLEX #90 tabs omeprazole 40 mg capsule,delayed See Rx Instructions .Route 05/04/22 release .COMPLEX #90 caps azithromycin 250 mg tablet 250 mg PO UD DOSE PK #6 tabs 10/21/22 (Zithromax) benzonatate 100 mg capsule 100 mg PO TIDP PRN Cough #30 caps 10/21/22 Allergies Allergy/AdvReac Type Severity Reaction Status Date / Time prednisone Allergy Verified 10/12/22 13:18 Worker's Comp Is this a Worker's Comp case?: No [facility] Dis[facility]: The information contained in this section may have been updated after the patient was seen, as this information can be updated by other users. Medical History Cancer Chest pain Dizziness Elevated d-dimer Fatigue Gastroesophageal reflux disease Syncope Surgical History Bioprosthetic aortic valve replacement during current hospitalization History of appendectomy History of cardiac cath History of cholecystectomy History of hysterectomy History of open heart surgery Social History Smoking Status: Former smoker alcohol intake: never substance use type: denies use current occupational status: retired Travel in the last 8 weeks: Inside the [place] household members: family housing: house caffeine: No ROS Obtained: Yes All systems reviewed & no additional complaints except as documented Constitutional Constitutional: Reports poor appetite Eyes Eyes: Reports system reviewed and no additional complaints, except as documented ENT Ears, Nose, Mouth, and Throat: Reports as per HPI Cardiovascular Cardiovascular: Reports system reviewed and no ad
[2022-10-21 13:25] VITALS: BP 151/72; PULSE 68; RESP 20; TEMP 36.5; O2SAT 97
== END 2022-10-21 13:29 | disposition home or self-care (01) ==
PROVIDERS: Emergency Provider Nurse Practitioner Family; PCP Family Medicine
DX: J32.9 Chronic sinusitis, unspecified (principal)
CPT/HCPCS: 99212; 99213; G0463

== ENCOUNTER 2022-11-21 08:08 | Day surgery (SDC) | payer MEDICARE, SELFPAY ==
[2022-11-21] VITALS (12 sets, daily range): BP systolic 103–132; BP diastolic 57–70; PULSE 60–93; RESP 18; TEMP 37; O2SAT 90–100; BMI 20.7
--- NOTE | 2022-11-21 07:41 | IR_ITS ---
APPROVED REPORT Patient Location: [facility] Technician: DIONICIO Aparicio RT (R) PROCEDURES Selective coronary angiogram INDICATION Recalcitrant angina pectoris Informed consent was obtained prior to the procedure. COMPLICATIONS None Estimated Blood Loss: Less than 10 mls TECHNIQUE One percent lidocaine used to anesthetize the right anterior aspect of the wrist. The right radial artery was accessed via the Seldinger technique. A 6 [place] sheath was placed in the right radial artery. 2.5 mg of verapamil, 800 mcg of nitroglycerin, 1mg Lidocaine and 5000 U Heparin were given through the arterial sheath. The papa catheter was also used to perform left heart catheterization, left ventriculogram and selective coronary angiogram. At the end of the procedure the sheath was removed good hemostasis was achieved using Traclet band, patient was transferred to the postop holding area in stable condition. ANGIOGRAPHIC RESULTS The left main artery Normal The left anterior descending artery Has proximal and mid vessel 10% luminal regularities The circumflex artery Nondominant with mild 10% luminal irregularities The right coronary artery Is dominant and has an anterior takeoff. The mid segment has a long 40% stenosis The [place] ventriculogram reveals Not performed The left ventricular end-diastolic pressure Not measured IMPRESSION Mild to moderate coronary disease involving the mid dominant right coronary as described above which is not the etiology for patient's angina PLAN 1. Continue medical management Electronically signed by : Jose R Richards MD 11/21/2022 10:39:04
[2022-11-21 08:55] LABS: MANUAL DIFFERENTIAL MANUAL DIFFERENTIAL (MANUAL DIFF)
[2022-11-21 08:58] LABS: Basophils % 0.8 % (0.1-2.0); Eosinophils # 0.1 K/mm3 (0.0-0.4); Eosinophils % 1.4 % (0.1-12.0); Hematocrit 43.9 % (37.0-47.0); Lymphocytes # 1.5 K/mm3 (0.7-4.5); Mean Corpuscular Hemoglobin 28.8 pg (27.0-31.2); Mean Platelet Volume 8.2 fl (7.4-10.4); Monocytes # 0.2 K/mm3 (0.1-1.0); Monocytes % 3.6 % (1.7-9.3); Neutrophils # 3.3 K/mm3 (1.8-7.8); Neutrophils % 65.4 % (37.0-80.0); Platelet Count 328 K/mm3 (142-424); Red Blood Count 4.88 M/mm3 (4.20-5.40); Red Cell Distribution Width 13.5 % (11.5-17.5); White Blood Count 5.1 K/mm3 (4.8-10.8)
[2022-11-21 09:02] LABS: Chloride 104 mmol/L (98-107); Potassium 4.1 mmoL/L (3.5-5.1); Sodium 139 mmol/L (136-145)
[2022-11-21 09:05] LABS: Anion Gap 8.1 mEq/L (5-15); Blood Urea Nitrogen 19 mg/dl (7-17); Carbon Dioxide 31 mmol/L (22.0-30.0); Creatinine Clearance Estimated 46 mL/min (50-200); Estimated Glomerular Filt Rate 71 ml/min (>60); GFR (African American) 86 ML/MIN (>60)
[2022-11-21 09:06] LABS: Calcium 8.8 mg/dl (8.4-10.2); Glucose 92 mg/dl (74-100)
[2022-11-21 09:29] LABS: Lymphocytes % 24 % (10-50); Monocytes % 4 % (2-9); Neutrophils % 72 % (42-76); Platelet Estimate Normal; RBC Morphology Normal; Total Cells Counted 100
== END 2022-11-21 13:35 | disposition home or self-care (01) ==
LOC: CATHLAB 08:14
PROVIDERS: PCP Family Medicine; Visit Provider Internal Medicine
DX: R07.9 Chest pain, unspecified (principal); Z95.3 Presence of xenogenic heart valve; Z87.891 Personal history of nicotine dependence; I25.118 Atherosclerotic heart disease of native coronary artery with other forms of angina pectoris; Z79.899 Other long term (current) drug therapy
CPT/HCPCS: 80048; 85007; 85014; 85018; 85048; 85049; 93454; 99152; C1725; C1769; J1644; Q9967

== ENCOUNTER → 2023-04-24 15:45 | Outpatient (CLI) | payer MEDICARE, SELFPAY ==
[2023-04-24 19:01] LABS: Basophils % 0.3 % (0.1-2.0); Eosinophils % 0.5 % (0.1-12.0); Hematocrit 43.8 % (37.0-47.0); Hemoglobin 13.9 g/dL (12.2-16.2); Lymphocytes # 1.6 K/mm3 (0.7-4.5); Lymphocytes % 25.3 % (10-50); Mean Corpuscular HGB Conc 31.8 g/dL (31.8-35.4); Mean Corpuscular Volume 91.2 fl (81-99); Monocytes # 0.4 K/mm3 (0.1-1.0); Monocytes % 5.7 % (1.7-9.3); Neutrophils # 4.2 K/mm3 (1.8-7.8); Neutrophils % 68.1 % (37.0-80.0); Platelet Count 304 K/mm3 (142-424); Red Cell Distribution Width 13.7 % (11.5-17.5); White Blood Count 6.2 K/mm3 (4.8-10.8)
[2023-04-24 19:29] LABS: Alanine Aminotransferase 18 U/L (12-78); Albumin Level 4.5 g/dl (3.5-5.0); Albumin/Globulin Ratio 1.8 (1.1-1.8); Alkaline Phosphatase 76 U/L (38-126); Anion Gap 12.7 mEq/L (5-15); Aspartate Amino Transferase 21 U/L (14-36); Bilirubin,Total 0.6 mg/dl (0.2-1.3); Blood Urea Nitrogen 11 mg/dl (7-17); Calcium 9.6 mg/dl (8.4-10.2); Carbon Dioxide 30 mmol/L (22.0-30.0); Chloride 105 mmol/L (98-107); Estimated Glomerular Filt Rate 98 ml/min (>60); GFR (African American) 119 ML/MIN (>60); Globulin 2.5 g/dL (1.3-3.2); Glucose 71 mg/dl (74-100); Potassium 4.7 mmoL/L (3.5-5.1); Sodium 143 mmol/L (136-145)
[2023-04-24 19:41] LABS: T4 (Thyroxine) 8.3 ug/dl (5.53-11.0)
[2023-04-24 19:54] LABS: Thyroid Stimulating Hormone 2.25 uIU/mL (0.465-4.68)
== END ==
PROVIDERS: PCP Family Medicine; Visit Provider Family Medicine
DX: R53.83 Other fatigue (principal); I10 Essential (primary) hypertension; Z79.899 Other long term (current) drug therapy
CPT/HCPCS: 80053; 84436; 84443; 85025

== ENCOUNTER → 2023-05-24 08:24 | Outpatient (CLI) | payer MEDICARE, SELFPAY ==
--- NOTE | 2023-05-24 08:25 | CT_ITS ---
FINAL REPORT TECHNIQUE: Thin section axial CT images of the facial bones and sinuses were obtained without contrast. Coronal reformatted images were also obtained.This study was performed with techniques to keep radiation doses as low as reasonably achievable, (ALARA). Individualized dose reduction techniques using automated exposure control or adjustment of mA and/or kV according to the patient''''s size were employed. CLINICAL HISTORY: sinusitis COMPARISON: None FINDINGS: There is no evidence of mucosal thickening. No fluid levels are identified. The ostiomeatal units have an unremarkable appearance. Right arnulfo bullosa is noted. There is leftward nasal septal deviation with left-sided nasal septal spur. No fracture or acute bony abnormality is identified. IMPRESSION: Leftward nasal septal deviation with left-sided nasal septal spur. Reviewed, Interpreted and Dictated by Kemal Curiel III, MD Transcribed by Betty Del Real Authenticated and [facility]
--- NOTE | 2023-05-24 08:25 | CT_ITS ---
FINAL REPORT CLINICAL HISTORY: recurrent headaches, dizziness x months COMPARISON: None FINDINGS: TECHNIQUE: Multiple axial CT sections were performed from the foramen magnum to the vertex. Coronal reformatted images were also obtained. Precontrast and postcontrast injection images were obtained. This study was performed with technique to keep radiation doses as low as reasonably achievable, (ALARA). Individualized dose reduction techniques using automated exposure control or adjustment of mA and/or kV according to the patient size were employed. FINDINGS: The ventricles are normal in size. There is no evidence of hemorrhage. No masses are identified. No extra-axial fluid collection is seen. The sinuses are normal. No osseous abnormality is seen on the bone window images. Postcontrast images demonstrate no abnormal enhancement. IMPRESSION: Unremarkable CT of the head with and without contrast. Reviewed, Interpreted and Dictated by Kemal Curiel III, MD Transcribed by Betty Del Real Authenticated and [facility]
--- NOTE | 2023-05-24 09:24 | ECG_ITS ---
APPROVED REPORT Exam: Resting ECG HR:70 bpm ECG Measurements Heart Rate 70 AXES ME 185 P 84 QRSd 82 QRS 79 QT 372 T 72 QTc 393 Conclusion SINUS RHYTHM NORMAL ECG UNCONFIRMED REPORT Electronically signed by : Montrell Gil MD 05/25/2023 16:03:45
== END ==
PROVIDERS: PCP Family Medicine; Visit Provider Nurse Practitioner
DX: R20.0 Anesthesia of skin (principal); R22.0 Localized swelling, mass and lump, head; R42 Dizziness and giddiness
CPT/HCPCS: 70470; 70486; 93005; Q9966

== ENCOUNTER 2023-05-24 09:24 | Emergency (ER) | payer MEDICARE, SELFPAY ==
[2023-05-24] VITALS (9 sets, daily range): BP systolic 94–149; BP diastolic 47–68; PULSE 63–81; RESP 18; TEMP 36.7–36.8; O2SAT 95–99; BMI 20.1
--- NOTE | 2023-05-24 09:45 | CT_ITS ---
FINAL REPORT TECHNIQUE: Thin section axial CT with IV contrast supplemented with multiplanar reconstruction under CT angiogram protocol. 3-D reconstructions were performed. This study was performed with techniques to keep radiation doses as low as reasonably achievable (ALARA). Individualized dose reduction techniques using automated exposure control or adjustment of mA and/or kV according to the patient''s size were employed. CLINICAL HISTORY: Lancinating Posterior L pain FINDINGS: The distal vertebral, basilar and distal internal carotid arteries have an unremarkable appearance. No aneurysm is seen. Major intracranial vessels are patent without significant stenosis. IMPRESSION: The intracranial vessels are normal. Reviewed, Interpreted and Dictated by Kemal Curiel III, MD Transcribed by Izabela Marks Authenticated and [facility]
--- NOTE | 2023-05-24 09:45 | CT_ITS ---
FINAL REPORT TECHNIQUE: Thin section axial CT with IV contrast supplemented with multiplanar reconstruction under CT angiogram protocol. This study was performed with techniques to keep radiation doses as low as reasonably achievable (ALARA). Individualized dose reduction techniques using automated exposure control or adjustment of mA and/or kV according to the patient''s size were employed. NASCET criteria was utilized during interpretation. CLINICAL HISTORY: Lancinating Posterior L pain FINDINGS: Aortic arch: Arch shows no significant narrowing. Great vessel origins are widely patent. Right carotid: No significant stenosis is seen of the cervical common or internal carotid artery. Left carotid: No significant stenosis is seen of the cervical common or internal carotid artery. Vertebral: Left vertebral artery is dominant. No significant stenosis is present. There is moderate stenosis of the left subclavian artery. There is moderate emphysema. There is scarring in the lung apices. 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 Reviewed, Interpreted and Dictated by Kemal Curiel III, MD Transcribed by Izabela Marks Authenticated and [facility]
--- NOTE | 2023-05-24 09:47 | HMH.EDGENADL ---
Discharge Plan Disposition Patient Disposition: Home, Self-Care Prescriptions Prescriptions: New prednisone 20 mg tablet 20 mg PO DAILY 10 Days Qty: 10 0RF No Action trazodone 50 mg tablet 50 mg PO HS PRN (Reason: sleep) omeprazole 40 mg capsule,delayed release(DR/EC) See Rx Instructions .ROUTE .COMPLEX Qty: 90 3RF Rx Instructions: TAKE 1 CAPSULE BY MOUTH ONCE DAILY NEEDED FOR HEART BURN fluticasone propionate [Flonase Allergy Relief] 50 mcg/actuation spray,suspension 2 spray intranasal DAILY Qty: 16 3RF Rx Instructions: administer into each nostril levocetirizine [Xyzal] 5 mg tablet 5 mg PO DAILY Qty: 90 3RF aspirin [Adult Low Dose Aspirin] 81 mg tablet,delayed release (DR/EC) 81 mg PO DAILY furosemide 20 mg tablet See Rx Instructions .ROUTE .COMPLEX Rx Instructions: TAKE 1 TABLET BY MOUTH ONCE DAILY NEEDED FOR SWELLING Referrals Follow up/Referrals: Provider,Referral, MD [Referring] - See instructions Activity Restrictions/Add. Instructions Additional Instructions/Restrictions: At this time is felt you are safe to be discharged home. If new or worsening symptoms please do not hesitate to return the emergency department. Please continue to follow-up on an outpatient basis for your dizziness as we discussed. Please follow-up with your family doctor within 1 week to assess your response to steroids. Clinical Impressions Clinical Impression: Polymyalgia rheumatica Discharge ED Provider: Hernan Denise General Adult HPI General Chief complaint: Weakness Stated complaint: Weakness Time Seen by Provider: 05/24/23 09:27 Mode of Arrival: Wheelchair Source of Information: Patient Limitations: No Limitations Description of Symptoms (Recalled from ER Triage Doc. by RN): Patient reports having shakes off and on for approx 6 weeks, nausea, loss of balance, dizziness and puffy face off and on for 2 months now. Patient also reports neck soreness off and on. History of Present Illness HPI narrative: Patient is a 73-year-old female with previous history of temporal arteritis status post prolonged steroid course approximately 10 years ago who presents emergency department for evaluation of multiple complaints. Since October patient states that she has had bilateral slow visual worsening. Lately patient has had bilateral neck stiffness and pain radiating up into her neck, lancinating left neck pain radiating up into the base of her skull, bilateral hip pain over the course of the last 2 or 3 days. Intermittently patient is dizzy while ambulating which comes and goes. She was referred here from clinic due to this for continued evaluation. Related Data Home Medications Medication Instructions Recorded Confirmed aspirin 81 mg tablet,delayed 81 mg PO DAILY . 11/21/22 05/17/23 release (Adult Low Dose Aspirin) furosemide 20 mg tablet See Rx Instructions .Route 11/21/22 05/17/23 .COMPLEX . trazodone 50 mg tablet 50 mg PO HS PRN sleep 04/24/23 05/17/23 Previous Rx's Medication Instructions Recorded omeprazole 40 mg capsule,delayed See Rx Instructions .Route 12/04/22 release .COMPLEX . #90 caps fluticasone propionate 50 2 spray intranasal DAILY allergy 05/17/23 mcg/actuation nasal symptoms #16 grams spray,suspension (Flonase Allergy Relief) levocetirizine 5 mg tablet (Xyzal) 5 mg PO DAILY #90 tabs 05/17/23 prednisone 20 mg tablet 20 mg PO DAILY 10 days #10 tabs 05/24/23 Allergies Allergy/AdvReac Type Severity Reaction Status Date / Time prednisone Allergy Verified 05/17/23 10:03 [facility] Disclaimer: The information contained in this section may have been updated after the patient was seen, as this information can be updated by other users. Medical History (Updated 05/24/23 @ 13:02 by Hernan Denise MD) Abdominal aortic aneurysm (AAA) Cancer Chest pain Dizziness Dizziness Dyspnea Elevated d-dimer Fatigue Gastroesopha
[2023-05-24 10:15] LABS: Basophils % 0.4 % (0.1-2.0); Eosinophils # 0.1 K/mm3 (0.0-0.4); Eosinophils % 0.9 % (0.1-12.0); Hematocrit 37.7 % (37.0-47.0); Hemoglobin 12.1 g/dL (12.2-16.2); Mean Corpuscular Hemoglobin 28.4 pg (27.0-31.2); Mean Corpuscular Volume 88.7 fl (81-99); Monocytes # 0.3 K/mm3 (0.1-1.0); Monocytes % 5.7 % (1.7-9.3); Neutrophils # 4.7 K/mm3 (1.8-7.8); Platelet Count 367 K/mm3 (142-424); Red Blood Count 4.25 M/mm3 (4.20-5.40); Red Cell Distribution Width 13.3 % (11.5-17.5)
[2023-05-24 10:21] LABS: Chloride 103 mmol/L (98-107); Sodium 138 mmol/L (136-145)
[2023-05-24 10:24] LABS: Alanine Aminotransferase 39 U/L (12-78); Albumin Level 3.5 g/dl (3.5-5.0); Albumin/Globulin Ratio 1.3 (1.1-1.8); Alkaline Phosphatase 106 U/L (38-126); Aspartate Amino Transferase 26 U/L (14-36); Bilirubin,Total 0.4 mg/dl (0.2-1.3); Blood Urea Nitrogen 16 mg/dl (7-17); Calcium 9.4 mg/dl (8.4-10.2); Carbon Dioxide 29 mmol/L (22.0-30.0); Creatine Kinase 48 U/L (30-135); Creatinine Clearance Estimated 44 mL/min (50-200); Estimated Glomerular Filt Rate 98 ml/min (>60); GFR (African American) 119 ML/MIN (>60); Globulin 2.8 g/dL (1.3-3.2); Glucose 97 mg/dl (74-100); Total Protein,Serum 6.3 g/dl (6.3-8.2)
[2023-05-24 10:25] LABS: Magnesium 1.9 mg/dl (1.6-2.3)
--- NOTE | 2023-05-24 10:39 | PC.NURSE ---
rounded on patient no new complaints
[2023-05-24 10:43] LABS: Erythrocyte Sedimentation Rate 60 mm/hr (0-30)
[2023-05-24 10:53] LABS: C-Reactive Protein 76.2 mg/L (0-4)
--- NOTE | 2023-05-24 11:00 | PC.NURSE ---
rounded on patient; pt given ice water that was okay'd by . Friend at [facility], no other needs at this time. Call drake within reach
--- NOTE | 2023-05-24 11:54 | PC.NURSE ---
Rounded on patient. No needs at this time.
--- NOTE | 2023-05-24 12:20 | PC.NURSE ---
pt updated on still waiting on scan results no needs at this time
--- NOTE | 2023-05-24 12:30 | PC.NURSE ---
pt up to restroom with assistance
== END 2023-05-24 13:26 | disposition home or self-care (01) ==
PROVIDERS: Emergency Provider Emergency Medicine; PCP Family Medicine
DX: M35.3 Polymyalgia rheumatica (principal); H53.8 Other visual disturbances; M54.2 Cervicalgia; M25.551 Pain in right hip; M25.552 Pain in left hip; K21.9 Gastro-esophageal reflux disease without esophagitis; I71.40 Abdominal aortic aneurysm, without rupture, unspecified; Z95.2 Presence of prosthetic heart valve
CPT/HCPCS: 70470; 70486; 70496; 70498; 80053; 82550; 83735; 85025; 85651; 86140; 93005; 96374; 99285; Q9966; Q9967

== ENCOUNTER → 2023-08-15 16:26 | Outpatient (CLI) | payer MEDICARE, SELFPAY ==
[2023-08-15 16:24] LABS: Basophils % 0.3 % (0.1-2.0); Eosinophils % 0.1 % (0.1-12.0); Hematocrit 46.7 % (37.0-47.0); Hemoglobin 15.2 g/dL (12.2-16.2); Lymphocytes % 8.4 % (10-50); Mean Corpuscular HGB Conc 32.6 g/dL (31.8-35.4); Mean Corpuscular Hemoglobin 31.3 pg (27.0-31.2); Mean Corpuscular Volume 95.9 fl (81-99); Mean Platelet Volume 7.6 fl (7.4-10.4); Monocytes # 0.3 K/mm3 (0.1-1.0); Monocytes % 2.9 % (1.7-9.3); Neutrophils # 10.5 K/mm3 (1.8-7.8); Neutrophils % 88.4 % (37.0-80.0); Platelet Count 201 K/mm3 (142-424); Red Blood Count 4.87 M/mm3 (4.20-5.40); Red Cell Distribution Width 14.6 % (11.5-17.5); White Blood Count 11.9 K/mm3 (4.8-10.8)
[2023-08-15 16:25] LABS: MANUAL DIFFERENTIAL MANUAL DIFFERENTIAL (MANUAL DIFF)
[2023-08-15 16:35] LABS: INR 0.99 (0.9-1.1); Prothrombin Time 10.7 seconds (10.1-12.5)
[2023-08-15 16:42] LABS: Chloride 100 mmol/L (98-107)
[2023-08-15 16:43] LABS: Potassium 3.8 mmoL/L (3.5-5.1); Sodium 137 mmol/L (136-145)
[2023-08-15 16:45] LABS: Alanine Aminotransferase 39 U/L (12-78); Alkaline Phosphatase 47 U/L (38-126); Anion Gap 7.8 mEq/L (5-15); Aspartate Amino Transferase 28 U/L (14-36); Bilirubin,Total 0.7 mg/dl (0.2-1.3); Blood Urea Nitrogen 18 mg/dl (7-17); Carbon Dioxide 33 mmol/L (22.0-30.0); Estimated Glomerular Filt Rate 98 ml/min (>60); GFR (African American) 119 ML/MIN (>60)
[2023-08-15 16:46] LABS: Albumin Level 4.3 g/dl (3.5-5.0); Calcium 8.8 mg/dl (8.4-10.2); Globulin 2.1 g/dL (1.3-3.2); Glucose 99 mg/dl (74-100); Total Protein,Serum 6.4 g/dl (6.3-8.2)
[2023-08-15 18:19] LABS: Lymphocytes % 15 % (10-50); Monocytes % 1 % (2-9); Neutrophils % 84 % (42-76); Total Cells Counted 100
[2023-08-15 18:20] LABS: Platelet Estimate Normal; RBC Morphology Normal
== END ==
PROVIDERS: PCP Family Medicine; Visit Provider Family Medicine
DX: Z95.3 Presence of xenogenic heart valve (principal); R23.3 Spontaneous ecchymoses; Z51.81 Encounter for therapeutic drug level monitoring; Z79.01 Long term (current) use of anticoagulants
CPT/HCPCS: 80053; 85007; 85025; 85610

== ENCOUNTER 2023-09-16 11:56 | Emergency (ER) | payer MEDICARE, SELFPAY ==
[2023-09-16] VITALS (10 sets, daily range): BP systolic 140–166; BP diastolic 64–77; PULSE 47–55; RESP 15–21; TEMP 36.9; O2SAT 96–99
--- NOTE | 2023-09-16 11:59 | ECG_ITS ---
APPROVED REPORT Exam: Resting ECG HR:51 bpm ECG Measurements Heart Rate 51 AXES W[place] 194 P 83 QRSd 85 QRS 61 QT 395 T 64 QTc 371 Conclusion SINUS BRADYCARDIA BORDERLINE ECG UNCONFIRMED REPORT Electronically signed by : Montrell Gil MD 09/17/2023 17:49:48
--- NOTE | 2023-09-16 12:50 | XR_ITS ---
PROCEDURE INFORMATION: Exam: XR Chest Exam date and time: 09/16/2023 1:12 PM Age: 73 years old Clinical indication: Pain; Chest pressure; Prior surgery; Surgery date: 6+ months; Surgery type: 2 open heart surgeries. Valve replacement; Additional info: Chest pain TECHNIQUE: Imaging protocol: Radiologic exam of the chest. Views: 1 view. Total images: 1 COMPARISON: CT ANGIO CHEST PE PROTOCOL 10/12/2022 3:02 PM FINDINGS: Lungs: Bilateral hyperinflation is present. Pleural spaces: No focal pneumonia or pneumothorax. Apical pleural thickening noted bilaterally. No pleural effusions. Heart/Mediastinum: The heart is not enlarged. Vasculature: Mild atherosclerotic disease. Bones/joints: There is evidence of prior median sternotomy. The thoracic spine demonstrates mild degenerative changes at multiple levels. IMPRESSION: 1. Bilateral hyperinflation is present. 2. No focal pneumonia or pneumothorax. 3. No pleural effusions.
--- NOTE | 2023-09-16 12:51 | HMH.EDCP ---
Discharge Plan Disposition Patient Disposition: Home, Self-Care Chief Complaint: Chest Pain Prescriptions Prescriptions: No Action trazodone 50 mg tablet 100 mg PO HS PRN (Reason: sleep) omeprazole 40 mg capsule,delayed release(DR/EC) See Rx Instructions .ROUTE .COMPLEX Qty: 90 3RF Rx Instructions: TAKE 1 CAPSULE BY MOUTH ONCE DAILY NEEDED FOR HEART BURN furosemide 20 mg tablet 20 mg PO DAILY PRN (Reason: .) 30 Days Qty: 30 1RF prednisone 5 mg tablet 5 mg PO DIRECTED Qty: 147 0RF Rx Instructions: see taper instructions Referrals Follow up/Referrals: Provider,Referral, MD [Primary Care Provider] - See instructions Activity Restrictions/Add. Instructions Additional Instructions/Restrictions: At this time it was felt you are safe to be discharged home. If new or worsening symptoms please do not hesitate to return the emergency department. Please continue to follow-up with cardiology tomorrow as discussed. Clinical Impressions Clinical Impression: Chest pain Discharge ED Provider: Hernan Denise General Chief Complaint: Chest Pain Stated Complaint: chest pain Time Seen by Provider: 09/16/23 12:13 Mode of Arrival: Ambulatory Source of Information: Patient Limitations: No Limitations Description of Symptoms (Recalled from ER Triage Doc. by RN): 73 yo F presents to with c/o chest pain intermittent. pt reports she was seen by her windows systems admin at [facility] on sunday and diagnosed with afib. pt started on eliquis 5mg twice a day, metoprlol 25mg one time a day. pt reports taking both medications this am approx 0830. pt reports no chest pain at time of triage but left sided chest pain with radiation into left arm approx 10 mins [employer]. History of Present Illness HPI narrative: Patient is a 73-year-old female with past medical history of aortic valve replacement x 2, recent diagnosis of atrial fibrillation started on metoprolol and Eliquis who presents emergency department for evaluation of chest pain. Patient was evaluated at [facility] last week and was offered admission for which she declined. She was discharged on Eliquis and metoprolol and has been compliant. Patient has had intermittent substernal chest pain that comes and goes for months. She had substernal chest pain onset 2 hours prior to arrival that caused her to present here for continued evaluation. No chest pain currently. No other acute complaints at this time. Denies trauma. Related Data Home Medications Medication Instructions Recorded Confirmed trazodone 50 mg tablet 100 mg PO HS PRN sleep 08/15/23 08/15/23 Previous Rx's Medication Instructions Recorded omeprazole 40 mg capsule,delayed See Rx Instructions .Route 12/04/22 release .COMPLEX . #90 caps furosemide 20 mg tablet 20 mg PO DAILY PRN . 30 days #30 05/29/23 tabs prednisone 5 mg tablet 5 mg PO DIRECTED #147 tabs 08/15/23 Allergies Allergy/AdvReac Type Severity Reaction Status Date / Time No Known Allergies Allergy Verified 08/15/23 10:29 [facility] Disclaimer: The information contained in this section may have been updated after the patient was seen, as this information can be updated by other users. Medical History Abdominal aortic aneurysm (AAA) Cancer Chest pain Dizziness Dizziness Dyspnea Elevated d-dimer Fatigue Gastroesophageal reflux disease Left facial numbness Otalgia of left ear Strep throat Swelling of left side of face Syncope Viral syndrome Surgical History Bioprosthetic aortic valve replacement during current hospitalization History of aortic valve replacement with bioprosthetic valve History of appendectomy History of cardiac cath History of cholecystectomy History of hysterectomy History of open heart surgery Family History Father Heart attack Mother Cancer Coronary artery disease Stroke Social History Smoking Status: Former smoker tobacco type: cigarettes packs per day: 1 alcohol intake: never substance use type: denies use current occupational status: retired Travel in the last 8 weeks: Inside the [facility] household members: family housing: house caffeine: No ROS Obtained: Yes Systems reviewed as appropriate & no additional complaints except as documented Physical Exam General General appearance: alert and in no apparent distress Head Head exam: atraumatic and normocephalic Eye Eye exam: Present PERRL and EOMI ENT ENT exam: Present mucous membranes moist Neck Neck exam: Present normal inspection Chest Chest inspection: Present normal inspection and symmetric chest wall rise Respiratory Respiratory exam: Present normal lung sounds bilaterally; Absent respiratory distress Cardiovascular Cardiovascular exam: Present regular rate and normal rhythm Abdominal Exam Abdominal exam: Present soft Extremities Exam Extremities exam: Present normal inspection Neurological Exam Neurological exam: Present alert Psychiatric Psychiatric exam: Present normal affect Skin Skin exam: Present warm and dry HEART Score HEART Score HEART Score assessment performed?: Yes History (anamnesis): Moderately suspicious ECG: Normal Age: >65 years Risk factors: 1-2 risk factors Troponin: </= normal limit HEART Score: 4 Critical Care Critical Care Time Critical Care Time: No Medical Decision Making Prem Inquiry Pt receiving controlled substance: No Vital Signs Vital Signs: 09/16/23 11:57 09/16/23 12:12 09/16/23 12:08 Temperature 98.4 F Temperature Source Oral Pulse Rate 50 L 49 L Pulse Rate [Left Radial] 53 L Respiratory Rate 15 16 Blood Pressure 147/65 H Blood Pressure [Right Arm] 165/70 H Blood Pressure Mean Blood Pressure Mean [Right Arm] 101 02 Sat by Pulse Oximetry 99 97 09/16/23 12:30 09/16/23 13:01 09/16/23 13:30 Temperature Temperature Source Pulse Rate 55 L 49 L 47 L Pulse Rate [Left Radial] Respiratory Rate 16 18 19 Blood Pressure 140/77 156/75 H 165/75 H Blood Pressure [Right Arm] Blood Pressure Mean 102 105 Blood Pressure Mean [Right Arm] 02 Sat by Pulse Oximetry 98 98 97 09/16/23 14:00 09/16/23 14:30 09/16/23 15:00 Temperature Temperature Source Pulse Rate 48 L 49 L 50 L Pulse Rate [Left Radial] Respiratory Rate 18 21 21 Blood Pressure 166/71 H 158/74 H 156/68 H Blood Pressure [Right Arm] Blood Pressure Mean 102 Blood Pressure Mean [Right Arm] 02 Sat by Pulse Oximetry 99 97 96 Lab Data Labs: Lab Results 09/16/23 12:08: WBC 9.4, RBC 4.65, Hgb 14.8, Hct 42.8, MCV 92.0, MCH 31.8 H, MCHC 34.6, RDW 13.9, Plt Count 245, MPV 7.5, Neut % (Auto) 68.4, Lymph % (Auto) 25.4, Bleckley % (Auto) 5.4, Eos % (Auto) 0.3, Baso % (Auto) 0.6, Neut # (Auto) 6.4, Lymph # (Auto) 2.4, Bleckley # (Auto) 0.5, Eos # (Auto) 0.0, Baso # (Auto) 0.1, Sodium 139, Potassium 3.6, Chloride 107, Carbon Dioxide 31 H, Anion Gap 4.6 L, BUN 13, Creatinine 0.60, Estimated Creat Clear 44, Estimated GFR 98, Est GFR ( Amer) 119, Glucose 100, Calcium 8.8, Total Bilirubin 0.8, AST 24, ALT 24, Alkaline Phosphatase 52, Troponin I < 0.01, Total Protein 6.0 L, Albumin 3.6, Globulin 2.4, Albumin/Globulin Ratio 1.5 09/16/23 14:41: Troponin I 0.01 09/16/23 12:08 09/16/23 12:08 Response Orders (Tests/Meds): ED MEDICATIONS Discontinued Medications Generic Name Dose Route Start Last Admin Trade Name Freq PRN Reason Stop Dose Admin Aspirin 324 mg 09/16/23 12:50 09/16/23 12:53 Aspirin 81mg Chewable Tablet PO 09/16/23 12:51 324 mg ONCE ONE Administration ORDERS Category Date Time Status CXR --portable [XR chest portable] Stat Exams 09/16/23 12:50 Completed CBC w/Auto Diff [Complete Blood Count Auto Diff] Stat Lab 09/16/23 12:08 Completed CMP [Comprehensive Metabolic Panel] Stat Lab 09/16/23 12:08 Completed Trop I [Troponin I] Stat Lab 09/16/23 12:08 Completed Troponin I Q3H Lab 09/16/23 14:41 Completed Troponin I Q3H Lab 09/16/23 19:00 Ordered ECG Data Tracing #1: ECG Narrative: Independently interpreted by me, rate is 51, rhythm is regular, axis is normal, no significant ST elevation in anatomical contiguous leads, QTc 371. Normal sinus rhythm. [facility] Narrative Medical Decision Narrative: In summary patient is a 73-year-old female past medical history described above who presents emergency department for evaluation of chest pain. Patient is hemodynamically stable nontoxic-appearing upon arrival, afebrile. Differential diagnosis includes ACS, noncardiac chest pain, among others. Workup will be conducted with hematologic labs, chest x-ray, EKG, serial troponins. Initial inventions include aspirin. Workup reviewed by me, hematologic labs are nonactionable, initial troponin below detectable limit. Chest x-ray informally interpreted by me, no acute lobar opacities or large pneumothorax. The patient was placed in observation status at 1323. Medical necessity for observational status is serial troponins in the setting of chest pain. The patient was provided serial reevaluations while awaiting results. Serial troponins are nonactionable, second troponin is within normal limits. Upon repeat evaluation patient continued to be chest pain-free throughout her time in the emergency department. She decision-making discussion was had and it was recommended that patient stay for third troponin given that it was undetectably low and second opponent was 0.01. Patient wishes to go home, I feel that this is reasonable. Patient was given extensive return precautions including any chest pain whatsoever to return for immediate evaluation and verbalized understanding. Patient will follow-up with cardiology tomorrow.
[2023-09-16] MEDS: ASPIRIN 81MG CHEWABLE TABLET 324 MG PO (12:53)
[2023-09-16 12:58] LABS: Basophils # 0.1 K/mm3 (0-0.2); Basophils % 0.6 % (0.1-2.0); Eosinophils % 0.3 % (0.1-12.0); Hematocrit 42.8 % (37.0-47.0); Hemoglobin 14.8 g/dL (12.2-16.2); Lymphocytes # 2.4 K/mm3 (0.7-4.5); Lymphocytes % 25.4 % (10-50); Mean Corpuscular HGB Conc 34.6 g/dL (31.8-35.4); Mean Corpuscular Hemoglobin 31.8 pg (27.0-31.2); Mean Platelet Volume 7.5 fl (7.4-10.4); Monocytes # 0.5 K/mm3 (0.1-1.0); Monocytes % 5.4 % (1.7-9.3); Neutrophils # 6.4 K/mm3 (1.8-7.8); Neutrophils % 68.4 % (37.0-80.0); Platelet Count 245 K/mm3 (142-424); Red Blood Count 4.65 M/mm3 (4.20-5.40); Red Cell Distribution Width 13.9 % (11.5-17.5); White Blood Count 9.4 K/mm3 (4.8-10.8)
[2023-09-16 12:59] LABS: Chloride 107 mmol/L (98-107); Sodium 139 mmol/L (136-145)
[2023-09-16 13:00] LABS: Potassium 3.6 mmoL/L (3.5-5.1)
[2023-09-16 13:02] LABS: Alanine Aminotransferase 24 U/L (12-78); Albumin Level 3.6 g/dl (3.5-5.0); Albumin/Globulin Ratio 1.5 (1.1-1.8); Alkaline Phosphatase 52 U/L (38-126); Anion Gap 4.6 mEq/L (5-15); Aspartate Amino Transferase 24 U/L (14-36); Bilirubin,Total 0.8 mg/dl (0.2-1.3); Blood Urea Nitrogen 13 mg/dl (7-17); Carbon Dioxide 31 mmol/L (22.0-30.0); Creatinine Clearance Estimated 44 mL/min (50-200); Estimated Glomerular Filt Rate 98 ml/min (>60); GFR (African American) 119 ML/MIN (>60); Globulin 2.4 g/dL (1.3-3.2)
[2023-09-16 13:03] LABS: Calcium 8.8 mg/dl (8.4-10.2); Glucose 100 mg/dl (74-100)
[2023-09-16 13:15] LABS: Troponin I < 0.01 ng/ml (0.00-0.034)
--- NOTE | 2023-09-16 13:17 | PC.NURSE ---
technologies division chair at [facility] for portable chest xray
--- NOTE | 2023-09-16 14:47 | PC.NURSE ---
pt resting in bed updated her that we are waiting for her second trop to result call light at [facility]
[2023-09-16 15:27] LABS: Troponin I 0.01 ng/ml (0.00-0.034)
== END 2023-09-16 15:55 | disposition home or self-care (01) ==
PROVIDERS: Emergency Provider Emergency Medicine
DX: R07.9 Chest pain, unspecified (principal); I48.91 Unspecified atrial fibrillation; I71.40 Abdominal aortic aneurysm, without rupture, unspecified; Z87.891 Personal history of nicotine dependence
CPT/HCPCS: 71045; 80053; 84484; 85025; 93005; 99285

== ENCOUNTER 2023-10-11 21:31 | Outpatient (CLI) | payer MEDICARE, SELFPAY ==
[2023-10-11 22:01] LABS: Basophils % 0.5 % (0.1-2.0); Eosinophils # 0.1 K/mm3 (0.0-0.4); Hemoglobin 14.1 g/dL (12.2-16.2); Lymphocytes % 27.9 % (10-50); Mean Corpuscular HGB Conc 32.7 g/dL (31.8-35.4); Mean Corpuscular Hemoglobin 30.6 pg (27.0-31.2); Mean Corpuscular Volume 93.6 fl (81-99); Mean Platelet Volume 9.3 fl (7.4-10.4); Monocytes # 0.5 K/mm3 (0.1-1.0); Monocytes % 6.4 % (1.7-9.3); Neutrophils # 4.5 K/mm3 (1.8-7.8); Neutrophils % 64.2 % (37.0-80.0); Platelet Count 386 K/mm3 (142-424); Red Blood Count 4.59 M/mm3 (4.20-5.40); Red Cell Distribution Width 13.2 % (11.5-17.5); White Blood Count 7.1 K/mm3 (4.8-10.8)
[2023-10-11 22:07] LABS: Chloride 106 mmol/L (98-107); Potassium 4.4 mmoL/L (3.5-5.1); Sodium 138 mmol/L (136-145)
[2023-10-11 22:09] LABS: Alanine Aminotransferase 31 U/L (12-78); Aspartate Amino Transferase 36 U/L (14-36); Blood Urea Nitrogen 14 mg/dl (7-17); Estimated Glomerular Filt Rate 98 ml/min (>60); GFR (African American) 119 ML/MIN (>60)
[2023-10-11 22:10] LABS: Albumin Level 3.6 g/dl (3.5-5.0); Albumin/Globulin Ratio 1.6 (1.1-1.8); Alkaline Phosphatase 86 U/L (38-126); Anion Gap 8.4 mEq/L (5-15); Bilirubin,Total 0.8 mg/dl (0.2-1.3); Calcium 8.8 mg/dl (8.4-10.2); Carbon Dioxide 28 mmol/L (22.0-30.0); Chol/HDL Ratio 4.7 (1-3.5); Cholesterol 185 mg/dl (140-200); Globulin 2.2 g/dL (1.3-3.2); Glucose 91 mg/dl (74-100); HDL Cholesterol 39 mg/dl (40-60); Total Protein,Serum 5.8 g/dl (6.3-8.2); Triglycerides 51 mg/dl (30-150); VLDL Cholesterol 10 mg/dL (0-40)
[2023-10-11 22:21] LABS: Direct LDL Cholesterol 113.25 mg/dL (100-129)
[2023-10-11 22:40] LABS: Thyroid Stimulating Hormone 2.65 uIU/mL (0.465-4.68)
== END 2023-10-11 23:59 ==
PROVIDERS: PCP Internal Medicine; Visit Provider Internal Medicine
DX: I25.10 Atherosclerotic heart disease of native coronary artery without angina pectoris (principal); I48.0 Paroxysmal atrial fibrillation; Z87.891 Personal history of nicotine dependence
CPT/HCPCS: 80053; 80061; 83735; 84443; 85025

== ENCOUNTER 2024-01-08 12:27 | Outpatient (CLI) | payer MEDICARE, SELFPAY ==
--- NOTE | 2024-01-08 12:36 | XR_ITS ---
FINAL REPORT CLINICAL HISTORY: Lt Shoulder Pain..no trauma COMPARISON: None FINDINGS: 3 views of the left shoulder show no evidence of acute displaced fracture or dislocation of the visualized bony architecture. The joint spaces appear normal. IMPRESSION: Unremarkable exam. Reviewed, Interpreted and Dictated by Ralph White MD Transcribed by Betty Del Real Authenticated and . [facility]
== END 2024-01-08 23:59 | disposition home or self-care (01) ==
LOC: RAD 12:28
PROVIDERS: PCP Family Medicine; Visit Provider Orthopaedic Surgery
DX: M25.512 Pain in left shoulder (principal)
CPT/HCPCS: 73030

== ENCOUNTER 2024-06-28 22:31 | Emergency (ER) | payer MEDICARE, SELFPAY ==
--- NOTE | 2024-06-28 22:30 | ECG_ITS ---
APPROVED REPORT Exam: Resting ECG HR:71 bpm ECG Measurements Heart Rate 71 AXES MN 196 P 78 QRSd 85 QRS 72 QT 410 T 68 QTc 432 Conclusion ELECTRONIC ATRIAL PACEMAKER ABNORMAL RHYTHM ECG UNCONFIRMED REPORT Electronically signed by : TELLO GARZA, 06/29/2024 06:10:31
[2024-06-28 22:31] VITALS: BP 122/56; PULSE 70; RESP 18; TEMP 36.6; O2SAT 97; BMI 19.6
[2024-06-28 22:39] VITALS: PULSE 71
--- NOTE | 2024-06-28 22:39 | XR_ITS ---
PROCEDURE INFORMATION: Exam: XR Chest Exam date and time: 06/28/2024 10:46 PM Age: 74 years old Clinical indication: Pain; Chest pressure and left-sided; Additional info: Chest pain TECHNIQUE: Imaging protocol: Radiologic exam of the chest. Views: 1 view. COMPARISON: CR XR CHEST PORTABLE 09/16/2023 1:12 PM FINDINGS: Tubes, catheters and devices: A new dual lead pacing device enters from the left. Lungs: Calcified granuloma medial right lung base. Calcified right hilar lymph nodes. Pleural spaces: Biapical pleural plaquing is again noted. No pleural effusion. No pneumothorax. Heart/Mediastinum: Unremarkable. No cardiomegaly. Vasculature: Unremarkable. Bones/joints: Median sternotomy wires are noted. IMPRESSION: No acute findings.
--- NOTE | 2024-06-28 22:44 | [facility].EDCP ---
Discharge Plan Disposition Patient Disposition: Home, Self-Care Prescriptions Prescriptions: No Action Eliquis 5 mg tablet 5 mg PO BID metoprolol tartrate 25 mg tablet 12.5 mg PO BID hydroxychloroquine 200 mg tablet 200 mg PO Patient Comments: TAKE 1 TABLET BY MOUTH DAILY omeprazole 40 mg capsule,delayed release(DR/EC) See Rx Instructions .ROUTE .COMPLEX Qty: 90 3RF Rx Instructions: TAKE 1 CAPSULE BY MOUTH ONCE DAILY NEEDED FOR HEART BURN furosemide 40 mg tablet 40 mg PO DAILY PRN (Reason: edema) Qty: 30 1RF alprazolam 0.25 mg tablet 0.125 mg PO TID Qty: 45 2RF Referrals Follow up/Referrals: Provider,Referral, MD [Primary Care Provider] - See instructions Activity Restrictions/Add. Instructions Additional Instructions/Restrictions: Please return if you develop any recurrent chest pains or other concerning symptoms. Please follow-up with your PCP and your tool and equipment rental clerk soon as possible. Clinical Impressions Clinical Impression: Chest pain Print Language Print Language: [place] Discharge ED Provider: Omar Hughes HPI <Kristine Kay (ED), PANEL EDGE PAINTER - Last Filed: 06/28/24 23:04> General Chief Complaint: Chest Pain Stated Complaint: Chest Pain Time Seen by Provider: 06/28/24 22:39 Mode of Arrival: EMS Source of Information: Patient and EMS Limitations: No Limitations Description of Symptoms (Recalled from ER Triage Doc. by RN): Pt presents to ED via EMS for chest pain that has been off and on all day. Pt states it became more intense a couple of hours ago. Pt took 2 nitro prior to EMS arrival. Pt is A&O*4 at this time. Pt states her pain is now more like pressure and rates it as a 4/10. History of Present Illness HPI narrative: This is a 74-year-old female who presents to the ED today for complaint of chest pain on the left side of her chest since 3 PM today. She was driving home after a baby shower and she was not feeling well. The pain has been coming and going. She says she went in and sat for a while and then showered and came back out and played a game with her granddaughter. She says she decided to take a nitro and it did not help. She took a second nitro and she felt like the pain went up into the her head. She says that she does have shortness of air all the time. She denies it being worse today. She says she did feel hot and nauseous but also says she ate more than she usually does today at the shower. She explains the pain is a pressure and rates it 4 out of 10. She has had 2 open heart surgeries in the past. 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 She had it replaced in 2017. She also has a pacer. Patient takes metoprolol twice daily, Eliquis twice daily, aspirin daily and Xanax she has not had her night medicines. She sees Dr. Lazar. Duration: intermittent Pain location: left chest Severity scale (1-10): 4 Quality: heaviness (Pressure) Treatments prior to or on arrival for Cardiac Chest Pain: nitroglycerin Related Data Home Medications ?Medication ?Instructions ?Recorded ?Confirmed apixaban 5 mg tablet (Eliquis) 5 mg PO BID 10/10/23 02/18/24 metoprolol tartrate 25 mg tablet 12.5 mg PO BID 12/24/23 02/18/24 hydroxychloroquine 200 mg tablet 200 mg PO 01/31/24 02/18/24 Previous Rx's ?Medication ?Instructions ?Recorded omeprazole 40 mg capsule,delayed See Rx Instructions .Route 12/04/22 release .COMPLEX . #90 caps furosemide 40 mg tablet 40 mg PO DAILY PRN edema #30 tabs 10/10/23 alprazolam 0.25 mg tablet 0.125 mg (1/2 x 0.25 mg) PO TID 03/05/24 anxiety #45 tabs Allergies Allergy/AdvReac Type Severity Reaction Status Date / Time prednisone Allergy Rash Verified 02/18/24 10:41 [facility] <Kristine Kay (ED), PANEL EDGE PAINTER - Last Filed: 06/28/24 23:04> [facility] Disclaimer: The information contained in this section may have been updated after the patient was seen, as this information can be updated by other users. Medical History Swelling of left side of face Left facial numbness Dizziness Otalgia of left ear Dyspnea Abdominal aortic aneurysm (AAA) Cancer Elevated d-dimer Viral syndrome Strep throat Chest pain Fatigue Gastroesophageal reflux disease Dizziness Syncope Surgical History History of aortic valve replacement with bioprosthetic valve History of hysterectomy History of cholecystectomy History of appendectomy History of open heart surgery History of cardiac cath Bioprosthetic aortic valve replacement during current hospitalization Family History Father Heart attack Mother Cancer Coronary artery disease Stroke Social History Smoking Status: Former smoker tobacco type: cigarettes packs per day: 1 alcohol intake: never substance use type: denies use current occupational status: retired Travel in the last 8 weeks: Inside the [place] household members: family housing: house caffeine: No Other Medical History Have you received the Flu Vaccine for this season: No Have you received the Pneumonia Vaccine: Yes <Kirstine Kay (ED), PANEL EDGE PAINTER - Last Filed: 06/28/24 23:04> ROS Obtained: Yes Systems reviewed as appropriate & no additional complaints except as documented Constitutional Constitutional: Reports as per HPI Physical Exam <Kristine Kay (ED), PANEL EDGE PAINTER - Last Filed: 06/28/24 23:04> General General appearance: alert and in no apparent distress Head Head exam: normocephalic Eye Eye exam: Present normal appearance and PERRL ENT ENT exam: Present normal exam and mucous membranes moist Neck Neck exam: Present normal inspection and trachea midline Chest Chest inspection: Present normal inspection and symmetric chest wall rise Respiratory Respiratory exam: Present normal lung sounds bilaterally Cardiovascular Cardiovascular exam: Present regular rate, normal rhythm, normal heart sounds, +S1 and +S2 Abdominal Exam Abdominal exam: Present soft and normal bowel sounds Extremities Exam Extremities exam: Present normal inspection, full ROM and normal capillary refill Neurological Exam Neurological exam: Present alert, oriented X3 and normal gait Psychiatric Psychiatric exam: Present normal affect and normal mood Skin Skin exam: Present warm and dry HEART Score <Kristine Kay (ED), PANEL EDGE PAINTER - Last Filed: 06/28/24 23:04> HEART Score HEART Score assessment performed?: Yes History (anamnesis): Slightly suspicious ECG: Normal Age: >65 years Risk factors: 1-2 risk factors Troponin: </= normal limit HEART Score: 3 <Luke Li MD - Last Filed: 06/28/24 23:44> HEART Score HEART Score: 3 <Omar Hughes MD - Last Filed: 06/29/24 01:58> HEART Score History (anamnesis): Moderately suspicious Risk factors: 1-2 risk factors HEART Score: 4 Critical Care <Kristine Kay (ED), PANEL EDGE PAINTER - Last Filed: 06/28/24 23:04> Critical Care Time Critical Care Time: No Medical Decision Making <Kristine Kay (ED), PANEL EDGE PAINTER - Last Filed: 06/28/24 23:04> Prem Inquiry Pt receiving controlled substance: No Vital Signs Vital Signs: 06/28/24 22:31 06/28/24 22:39 06/28/24 23:00 Temperature 97.8 F Temperature Source Oral Pulse Rate 71 70 Pulse Rate [Left] 70 Respiratory Rate 18 17 Blood Pressure 138/64 Blood Pressure [Right Arm] 122/56 L Blood Pressure Mean 81 Blood Pressure Mean [Right Arm] 78 02 Sat by Pulse Oximetry 97 Oxygen Delivery Method Room Air Lab Data Labs: Lab Results 06/28/24 22:30: WBC 5.3, RBC 4.32, Hgb 12.9, Hct 38.4, MCV 88.9, MCH 29.8, MCHC 33.5, RDW 13.2, Plt Count 245, MPV 7.3 L, Neut % (Auto) 59.1, Lymph % (Auto) 31.3, [place] % (Auto) 6.8, Eos % (Auto) 1.8, Baso % (Auto) 1.0, Neut # (Auto) 3.1, Lymph # (Auto) 1.7, [place] # (Auto) 0.4, Eos # (Auto) 0.1, Baso # (Auto) 0.1, D-Dimer 0.45, Sodium 141, Potassium 3.9, Chloride 106, Carbon Dioxide 32 H, Anion Gap 6.9, BUN 17, Creatinine 0.70, Estimated Creat Clear 42, Estimated GFR 82, Est GFR ( Amer) 99, Glucose 105 H, Calcium 9.0, Total Bilirubin 0.5, AST 26, ALT 20, Alkaline Phosphatase 56, Troponin I < 0.01, Total Protein 6.1 L, Albumin 3.9, Globulin 2.2, Albumin/Globulin Ratio 1.8 06/29/24 01:07: Troponin I < 0.01 06/28/24 22:30 06/28/24 22:30 Response Orders (Tests/Meds): ED MEDICATIONS Discontinued Medications Generic Name Dose Route Start Last Admin Trade Name Donal PRN Reason Stop Dose Admin Al Hydrox/Mg Hydrox/Simethicone 30 ml 06/28/24 22:39 06/28/24 22:51 Aluminum/Magnesium/Simethicone 30ml Udc PO 06/28/24 22:40 30 ml ONCE ONE Administration Morphine Sulfate 2 mg 06/28/24 22:50 06/28/24 22:51 Morphine 2mg/Ml Syringe IV 06/28/24 22:51 2 mg ONCE ONE Administration ORDERS Category Date Time Status XR chest portable Stat Exams 06/28/24 22:39 Completed Complete Blood Count Auto Diff Stat Lab 06/28/24 22:30 Completed Comprehensive Metabolic Panel Stat Lab 06/28/24 22:30 Completed D-Dimer Stat Lab 06/28/24 22:30 Completed HIV (1&2) Antibody Rapid Stat Lab 06/28/24 22:30 Received Hep C Ab with Reflex to RNA Stat Lab 06/28/24 22:30 Received Troponin I Q3H Lab 06/29/24 01:07 Completed Troponin I Q3H Lab 06/29/24 04:45 Ordered Troponin I Stat Lab 06/28/24 22:39 Completed <Luke Li MD - Last Filed: 06/28/24 23:44> Vital Signs Vital Signs: 06/28/24 22:31 06/28/24 22:39 06/28/24 23:00 Temperature 97.8 F Temperature Source Oral Pulse Rate 71 70 Pulse Rate [Left] 70 Respiratory Rate 18 17 Blood Pressure 138/64 Blood Pressure [Right Arm] 122/56 L Blood Pressure Mean 81 Blood Pressure Mean [Right Arm] 78 02 Sat by Pulse Oximetry 97 Oxygen Delivery Method Room Air Lab Data Labs: Lab Results 06/28/24 22:30: WBC 5.3, RBC 4.32, Hgb 12.9, Hct 38.4, MCV 88.9, MCH 29.8, MCHC 33.5, RDW 13.2, Plt Count 245, MPV 7.3 L, Neut % (Auto) 59.1, Lymph % (Auto) 31.3, [place] % (Auto) 6.8, Eos % (Auto) 1.8, Baso % (Auto) 1.0, Neut # (Auto) 3.1, Lymph # (Auto) 1.7, [place] # (Auto) 0.4, Eos # (Auto) 0.1, Baso # (Auto) 0.1, D-Dimer 0.45, Sodium 141, Potassium 3.9, Chloride 106, Carbon Dioxide 32 H, Anion Gap 6.9, BUN 17, Creatinine 0.70, Estimated Creat Clear 42, Estimated GFR 82, Est GFR ( Amer) 99, Glucose 105 H, Calcium 9.0, Total Bilirubin 0.5, AST 26, ALT 20, Alkaline Phosphatase 56, Troponin I < 0.01, Total Protein 6.1 L, Albumin 3.9, Globulin 2.2, Albumin/Globulin Ratio 1.8 06/29/24 01:07: Troponin I < 0.01 Response Orders (Tests/Meds): ED MEDICATIONS Discontinued Medications Generic Name Dose Route Start Last Admin Trade Name Freq PRN Reason Stop Dose Admin Al Hydrox/Mg Hydrox/Simethicone 30 ml 06/28/24 22:39 06/28/24 22:51 Aluminum/Magnesium/Simethicone 30ml Udc PO 06/28/24 22:40 30 ml ONCE ONE Administration Morphine Sulfate 2 mg 06/28/24 22:50 06/28/24 22:51 Morphine 2mg/Ml Syringe IV 06/28/24 22:51 2 mg ONCE ONE Administration ORDERS Category Date Time Status XR chest portable Stat Exams 06/28/24 22:39 Completed Complete Blood Count Auto Diff Stat Lab 06/28/24 22:30 Completed Comprehensive Metabolic Panel Stat Lab 06/28/24 22:30 Completed D-Dimer Stat Lab 06/28/24 22:30 Completed HIV (1&2) Antibody Rapid Stat Lab 06/28/24 22:30 Received Hep C Ab with Reflex to RNA Stat Lab 06/28/24 22:30 Received Troponin I Q3H Lab 06/29/24 01:07 Completed Troponin I Q3H Lab 06/29/24 04:45 Ordered Troponin I Stat Lab 06/28/24 22:39 Completed ECG Data Tracing #1: Attestation: I reviewed this ECG and interpreted as documented below: ECG Narrative: I, Luek Li MD, reviewed the EKG at 2231. Normal sinus rhythm with a ventricular rate of [address] elevations or depressions. [facility] Narrative Medical Decision Narrative: Saranya Chowdhury is a 74F with a history of aortic valve replacement, AAA, presenting to the emergency department for complaints of 4 out of 10, intermittent pressure-like chest pain that began at 3 PM today and did not get better with nitroglycerin. On arrival, patient is hemodynamically stable, breathing comfortably on room air with oxygen saturation 97% SpO2, afebrile. Physical exam, as stated above. Differential diagnosis includes: Pulmonary embolism, ACS, pneumonia, among others Patient's workup in the emergency department included EKG, chest x-ray, troponin, D-dimer, CMP At this time, patient's workup is pending. Patient's care transferred to the oncoming physician, Dr. Hughes. <Omar Hughes MD - Last Filed: 06/29/24 01:58> Vital Signs Vital Signs: 06/28/24 22:31 06/28/24 22:39 06/28/24 23:00 Temperature 97.8 F Temperature Source Oral Pulse Rate 71 70 Pulse Rate [Left] 70 Respiratory Rate 18 17 Blood Pressure 138/64 Blood Pressure [Right Arm] 122/56 L Blood Pressure Mean 81 Blood Pressure Mean [Right Arm] 78 02 Sat by Pulse Oximetry 97 Oxygen Delivery Method Room Air Lab Data Labs: Lab Results 06/28/24 22:30: WBC 5.3, RBC 4.32, Hgb 12.9, Hct 38.4, MCV 88.9, MCH 29.8, MCHC 33.5, RDW 13.2, Plt Count 245, MPV 7.3 L, Neut % (Auto) 59.1, Lymph % (Auto) 31.3, [place] % (Auto) 6.8, Eos % (Auto) 1.8, Baso % (Auto) 1.0, Neut # (Auto) 3.1, Lymph # (Auto) 1.7, [place] # (Auto) 0.4, Eos # (Auto) 0.1, Baso # (Auto) 0.1, D-Dimer 0.45, Sodium 141, Potassium 3.9, Chloride 106, Carbon Dioxide 32 H, Anion Gap 6.9, BUN 17, Creatinine 0.70, Estimated Creat Clear 42, Estimated GFR 82, Est GFR ( Amer) 99, Glucose 105 H, Calcium 9.0, Total Bilirubin 0.5, AST 26, ALT 20, Alkaline Phosphatase 56, Troponin I < 0.01, Total Protein 6.1 L, Albumin 3.9, Globulin 2.2, Albumin/Globulin Ratio 1.8 06/29/24 01:07: Troponin I < 0.01 Response Orders (Tests/Meds): ED MEDICATIONS Discontinued Medications Generic Name Dose Route Start Last Admin Trade Name Freq PRN Reason Stop Dose Admin Al Hydrox/Mg Hydrox/Simethicone 30 ml 06/28/24 22:39 06/28/24 22:51 Aluminum/Magnesium/Simethicone 30ml Udc PO 06/28/24 22:40 30 ml ONCE ONE Administration Morphine Sulfate 2 mg 06/28/24 22:50 06/28/24 22:51 Morphine 2mg/Ml Syringe IV 06/28/24 22:51 2 mg ONCE ONE Administration ORDERS Category Date Time Status XR chest portable Stat Exams 06/28/24 22:39 Completed Complete Blood Count Auto Diff Stat Lab 06/28/24 22:30 Completed Comprehensive Metabolic Panel Stat Lab 06/28/24 22:30 Completed D-Dimer Stat Lab 06/28/24 22:30 Completed HIV (1&2) Antibody Rapid Stat Lab 06/28/24 22:30 Received Hep C Ab with Reflex to RNA Stat Lab 06/28/24 22:30 Received Troponin I Q3H Lab 06/29/24 01:07 Completed Troponin I Q3H Lab 06/29/24 04:45 Ordered Troponin I Stat Lab 06/28/24 22:39 Completed MDM Narrative Medical Decision Narrative: Saranya Chowdhury is a 74F with a history of aortic valve replacement, AAA, presenting to the emergency department for complaints of 4 out of 10, intermittent pressure-like chest pain that began at 3 PM today and did not get better with nitroglycerin. On arrival, patient is hemodynamically stable, breathing comfortably on room air with oxygen saturation 97% SpO2, afebrile. Physical exam, as stated above. Differential diagnosis includes: Pulmonary embolism, ACS, pneumonia, among others Patient's workup in the emergency department included EKG, chest x-ray, troponin, D-dimer, CMP At this time, patient's workup is pending. Patient's care transferred to the oncoming physician, Dr. Hughes. Saul FERRO: I assumed care of the patient at the time of handoff from the prior provider. On reassessment patient jermaine hemodynamically stable. Initial workup interpreted by me is reassuring, negative initial troponin, negative D-dimer, chest x-ray interpreted by me shows no acute opacities. Repeat troponin returned undetectably low. On reassessment patient reports that her chest pain has been gone for a long time and has not returned. I had extensive discussion with patient and her daughter regarding her presentation. Given resolution of chest pain, negative troponin x 2, nonischemic EKG, I am reassured. However, given her age and the fact that her chest pain occurred at rest without other explanation, it is still concerning. I offered them admission for cardiac workup, but they report that since she feels well and has a negative workup and has a cardiology appointment in 2 days, they would prefer to be discharged and return if she has recurrent chest pain. Given this, patient was discharged in stable condition with return precautions. I was consulted by the JOHNATHON, and we discussed the complexity of the problems being addressed. I approved the treatment and management plan for this patient?s care in the Emergency Department, thus performing a substantive portion of the medical decision making. Omar Hughes MD
[2024-06-28 22:49] LABS: Basophils # 0.1 K/mm3 (0-0.2); Eosinophils # 0.1 K/mm3 (0.0-0.4); Eosinophils % 1.8 % (0.1-12.0); Hematocrit 38.4 % (37.0-47.0); Hemoglobin 12.9 g/dL (12.2-16.2); Lymphocytes # 1.7 K/mm3 (0.7-4.5); Lymphocytes % 31.3 % (10-50); Mean Corpuscular HGB Conc 33.5 g/dL (31.8-35.4); Mean Corpuscular Hemoglobin 29.8 pg (27.0-31.2); Mean Corpuscular Volume 88.9 fl (81-99); Mean Platelet Volume 7.3 fl (7.4-10.4); Monocytes # 0.4 K/mm3 (0.1-1.0); Monocytes % 6.8 % (1.7-9.3); Neutrophils # 3.1 K/mm3 (1.8-7.8); Neutrophils % 59.1 % (37.0-80.0); Platelet Count 245 K/mm3 (142-424); Red Blood Count 4.32 M/mm3 (4.20-5.40); Red Cell Distribution Width 13.2 % (11.5-17.5); White Blood Count 5.3 K/mm3 (4.8-10.8)
[2024-06-28 22:51] LABS: Alanine Aminotransferase 20 U/L (12-78); Albumin Level 3.9 g/dl (3.5-5.0); Albumin/Globulin Ratio 1.8 (1.1-1.8); Alkaline Phosphatase 56 U/L (38-126); Anion Gap 6.9 mEq/L (5-15); Aspartate Amino Transferase 26 U/L (14-36); Bilirubin,Total 0.5 mg/dl (0.2-1.3); Blood Urea Nitrogen 17 mg/dl (7-17); Carbon Dioxide 32 mmol/L (22.0-30.0); Chloride 106 mmol/L (98-107); Creatinine Clearance Estimated 42 mL/min (50-200); Estimated Glomerular Filt Rate 82 ml/min (>60); GFR (African American) 99 ML/MIN (>60); Globulin 2.2 g/dL (1.3-3.2); Glucose 105 mg/dl (74-100); Potassium 3.9 mmoL/L (3.5-5.1); Sodium 141 mmol/L (136-145); Total Protein,Serum 6.1 g/dl (6.3-8.2)
[2024-06-28] MEDS: MORPHINE 2MG/ML SYRINGE 2 MG IV (22:51)
[2024-06-28] MEDS: ALUMINUM/MAGNESIUM/SIMETHICONE 30ML UDC 30 ML PO (22:51)
[2024-06-28 22:57] LABS: D-Dimer 0.45 ug/mL (0.0-0.5)
[2024-06-28 23:00] VITALS: BP 138/64; PULSE 70; RESP 17
[2024-06-28 23:04] LABS: Troponin I < 0.01 ng/ml (0.00-0.034)
[2024-06-29 01:38] LABS: Troponin I < 0.01 ng/ml (0.00-0.034)
[2024-06-29 01:56] VITALS: BP 118/59; PULSE 63; RESP 20; TEMP 36.8; O2SAT 96
[2024-06-29 02:47] LABS: HIV (1&2) Antibody Rapid NONREACTIVE (NONREACTIVE)
[2024-07-01 05:16] LABS: HCV Ab Non Reactive (Non Reactive)
== END 2024-06-29 02:00 | disposition home or self-care (01) ==
PROVIDERS: Nurse Practitioner; Student in an Organized Health Care Education/Training Program; Emergency Provider Emergency Medicine
DX: R07.9 Chest pain, unspecified (principal); R06.02 Shortness of breath; Z95.3 Presence of xenogenic heart valve
CPT/HCPCS: 96374; 71045; 80053; 84484; 85025; 85378; 86803; 87389; 93005; 99284; J2270

== ENCOUNTER 2025-09-08 11:00 | Outpatient (RCR) | payer MEDICARE, SELFPAY | END 2025-09-08 23:59 | disposition home or self-care (01) | LOC: PT.CARL 11:00 | PROVIDERS: PCP Family Medicine; Visit Provider Student in an Organized Health Care Education/Training Program | DX: S12.601D Unspecified nondisplaced fracture of seventh cervical vertebra, subsequent encounter for fracture with routine healing (principal); S22.051D Stable burst fracture of T5-T6 vertebra, subsequent encounter for fracture with routine healing | CPT/HCPCS: 97110; 97162; 97530 ==